=== PATIENT | male | born 1940 | race Two or more races ===

== ENCOUNTER 2024-10-26 05:03 | Inpatient (IN) | payer OTHER ==
[~2024-10-26] VITALS: Ht 175.3 cm; Wt 72.5 kg
[2024-10-26] VITALS (9 sets, daily range): BP systolic 122–126; BP diastolic 53–66; PULSE 52–85; RESP 16–26; TEMP 97.9–98.8; O2SAT 94–95
--- NOTE | 2024-10-26 05:20 | ED.PDOC ---
History of Present Illness HPI Comments 83 y/o Libyan-speaking M is [id number] son for c/c nonradiating, right abdominal pain. Per son, patient endorses on sudden, unprovoked, and atraumatic onset of sharp pain that awoke him from his sleep, this morning, 3x hours prior to arrival. Patient describes on having a knot in his abdomen. Denies having any nausea, vomiting, diarrhea, constipation, urinary symptoms, fever, chills, or further associated symptoms. No known pertinent recent history aside from a pneumonia infection with pleural effusion s/p thoracentesis. Chief Complaint: Abdominal Pain Time Seen by MD: 05:10 Reviewed Notes: Nurses Notes, Medications Allergies: Coded Allergies: NO KNOWN ALLERGIES (Unverified , 10/26/24) Information Source: Patient, Relative (Child) Mode of Arrival: Ambulatory Severity: Moderate Timing: Hours Duration: Since onset Prehospital treatment: None Past Medical History Past Medical History (Other): water in lungs secondary to PNA Surgical History (Other): thoracentesis Family History Family History: Unknown Social History Smoker: Non-Smoker Alcohol: Denies ETOH Use Drugs: Denies Drug Use Lives In: Home All Other Systems: Reviewed and Negative (Comprehensive review of systems are negative unless otherwise stated in HPI) Physical Exam General Appearance: No Apparent Distress, Normal HEENT: Normal ENT Inspection, Pharynx Normal, TMs Normal Neck: Full Range of Motion, Non-Tender, Normal, Normal Inspection Respiratory: Chest Non-Tender, Lungs Clear, No Accessory Muscle Use, No Respiratory Distress, Normal Breath Sounds Cardiovascular: No Edema, No JVD, No Murmur, No Gallop, Normal Peripheral Pulses, Regular Rate/Rhythm Breast Exam: Deferred Gastrointestinal: No Organomegaly, Non Tender, No Pulsatile Mass, Normal Bowel Sounds, Soft Genitalia: Deferred Pelvic: Deferred Rectal: Deferred Extremities: No calf tenderness, Normal capillary refill, Normal inspection, Normal range of motion, Non-tender, No pedal edema Musculoskeletal : Location: Right Extremity Location: Other (flank) Apperance: Normal, Tenderness 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 Was a procedure done?: No Differential Dx Considerations may include: gastritis, gastroenteritis, cholelithiasis, cholecystitis, diverticulitis, appendicitis, PID, nephrolithiasis, cystitis, pyelonephritis, among others X-Ray, Labs, Meds, VS Vital Signs Date Time Temp Pulse Resp B/P (MAP) Pulse Ox O2 Delivery O2 Flow Rate FiO2 10/26/24 07:16 97.9 52 17 126/53 (77) 94 97.9 10/26/24 07:16 52 17 94 Room Air* 0 21 10/26/24 07:10 51 17 118/58 10/26/24 06:13 80 17 112/69 10/26/24 06:06 99.5 80 20 112/69 (83) 91 99.5 10/26/24 06:06 80 20 91 Room Air 10/26/24 05:10 99.5 83 20 113/69 (84) 92 99.5 Lab Test 10/26/24 05:24 10/26/24 05:16 Range/Units White Blood Count 7.2 4.4-10.8 10^3/uL Red Blood Count 3.75 L 4.5-5.90 10^6/uL Hemoglobin 12.8 L 13.5-17.5 g/dL Hematocrit 35.9 L 41.0-53.0 % Mean Corpuscular Volume 95.8 80.0-100.0 fL Mean Corpuscular Hemoglobin 34.0 H 28.0-32.0 pg Mean Corpuscular Hemoglobin Concent 35.5 32.0-36.0 g/dL Red Cell Distribution Width 13.7 11.8-14.3 % Platelet Count 396 140-450 10^3/uL Mean Platelet Volume 6.9 6.9-10.8 fL Neutrophils (%) (Auto) 69.0 37.0-80.0 % Lymphocytes (%) (Auto) 16.1 10.0-50.0 % Monocytes (%) (Auto) 13.8 H 0.0-12.0 % Eosinophils (%) (Auto) 0.7 0.0-7.0 % Basophils (%) (Auto) 0.4 0.0-2.0 % Neutrophils # (Auto) 5.0 1.6-8.6 10 ^3/uL Lymphocytes # (Auto) 1.2 0.4-5.4 10 ^3/uL Monocytes # (Auto) 1.0 0-1.3 10 ^3/uL Eosinophils # (Auto) 0.1 0-0.8 10 ^3/uL Basophils # (Auto) 0 0-0.2 10 ^3/uL Nucleated Red Blood Cells 0.0 % Prothrombin Time Pending Prothrombin Time INR Pending Activated Partial Thromboplast Time Pending Sodium Level 136 136-145 mmol/L Potassium Level 4.4 3.5-5.1 mmol/L Chloride Level 100 98-107 mmol/L Carbon Dioxide Level 26 20-31 mmol/L Anion Gap 10 5-15 Blood Urea Nitrogen 15 9-23 mg/dL Creatinine 0.92 0.700-1.30 mg/dL Glomerular Filtration Rate Calc 83 >90 mL/min BUN/Creatinine Ratio 16.3 10.0-20.0 Serum Glucose 105 74-106 mg/dL Calcium Level 9.9 8.7-10.4 mg/dL Total Bilirubin 0.6 0.2-1.0 mg/dL Aspartate Amino Transferase (AST) 32 13-40 U/L Alanine Aminotransferase (ALT) 47 H 7-40 U/L Alkaline Phosphatase 113 46-116 U/L Total Protein 6.3 5.7-8.2 g/dL Albumin 3.8 3.2-4.8 g/dL Lipase 42 12-53 U/L Urine Color Light-yellow Yellow Urine Clarity Clear Clear Urine pH 6.5 5.0-9.0 Urine Specific [place] 1.013 1.001-1.035 Urine Protein Negative Negative Urine Ketones Negative Negative Urine Blood Negative Negative /uL Urine Nitrite Negative Negative Urine Bilirubin Negative Negative Urine Urobilinogen Normal Negative mg/dL Urine Leukocyte Esterase Negative Negative /uL Urine RBC <1 0 - 3 /hpf Urine Microscopic WBC < 1 0-3 /HPF Urine Squamous Epithelial Cells None seen <5 /hpf Urine Bacteria None seen None Seen /hpf Urine Glucose Normal Normal mg/dL Current Medications Medications (Trade) Dose Ordered Sig/Gama Route Start Time Stop Time Status Last Admin Ondansetron HCl (Zofran) 4 mg ONCE ONCE IV 10/26/24 05:30 10/26/24 05:31 DC 10/26/24 06:13 Sodium Chloride 1,000 ml @ 1,000 mls/hr Q1H ONCE IVB 10/26/24 05:30 10/26/24 06:29 DC 10/26/24 06:06 Morphine Sulfate 4 mg ONCE ONCE IV 10/26/24 05:30 10/26/24 05:31 DC 10/26/24 06:13 Time of 1ST Reevaluation: 05:40 Reevaluation 1ST: Unchanged Patient Education/Counseling: Diagnosis, Treatment, Need For Follow Up Family Education/Counseling: Diagnosis, Treatment, Need For Follow Up SEPSIS Sepsis Screen Physician Orders Ct Chest/Ab/Pl W Con- Iv Only (10/26/24 05:16) PTPTT (10/26/24 07:47) Chest Portable (10/26/24 07:47) Accucheck (10/26/24 07:47) Lactated Ringer's (10/26/24 08:00) Blood Culture (10/26/24 07:47) Vancomycin 1gm/200ml Pm (10/26/24 08:00) Lactic Acid W/ Reflex Order (10/26/24 08:00) Cefepime 1gm/ 50ml (Maxipime 1gm/50ml) (10/26/24 14:00) Notify Md If Map <65 Or Bp<90 (10/26/24 07:47) If Map<65 Start Vasopressor (10/26/24 07:47) Sepsis Reassesment After Fluid (10/26/24 08:47) Vital Signs Date Time Temp Pulse Resp B/P (MAP) Pulse Ox O2 Delivery O2 Flow Rate FiO2 10/26/24 07:16 97.9 52 17 126/53 (77) 94 97.9 10/26/24 07:16 52 17 94 Room Air* 0 21 10/26/24 07:10 51 17 118/58 10/26/24 06:13 80 17 112/69 10/26/24 06:06 99.5 80 20 112/69 (83) 91 99.5 10/26/24 06:06 80 20 91 Room Air 10/26/24 05:10 99.5 83 20 113/69 (84) 92 99.5 Laboratory Tests Test 10/26/24 05:24 White Blood Count 7.2 10^3/uL (4.4-10.8) Medications Medications Dose Ordered Sig/Gama Route Start Time Stop Time Status Last Admin Dose Admin Morphine Sulfate 4 mg ONCE ONCE IV 10/26/24 05:30 10/26/24 05:31 DC 10/26/24 06:13 Ondansetron HCl 4 mg ONCE ONCE IV 10/26/24 05:30 10/26/24 05:31 DC 10/26/24 06:13 Sodium Chloride 1,000 ml @ 1,000 mls/hr Q1H ONCE IVB 10/26/24 05:30 10/26/24 06:29 DC 10/26/24 06:06 Departure 1 Departure Time of Disposition: 08:08 (Patient found to have right lower and right middle lobe pneumonia. Will empirically cover patient with antibiotics and admit patient for further workup.) Impression: Primary Impression: Right lower lobe pneumonia Qualified Codes: J18.9 - Pneumonia, unspecified organism Additional Impression: Right middle lobe pneumonia Qualified Codes: J18.9 - Pneumonia, unspecified organism Disposition: ADMITTED INPATIENT Admit to: Med Surg Condition: Serious Critical Care Note Critical Care Time?: No Stability Stability form required: No Heart Score Heart Score: Heart Score Response (Comments) Value History N/A 0 EKG N/A 0 Age N/A 0 Risk Factors N/A 0 Troponin N/A 0 Total 0 I personally scribed for KIM HARVEY MD ([email or web address]) on 10/26/24 at 05:20. Electronically submitted by Laureano Madison [email or web address]). KIM HARVEY MD Oct 26, 2024 05:20 ANIKA MCNULTY MD Oct 26, 2024 08:10
[2024-10-26 05:38] LABS: Hematocrit 35.9 % (41.0-53.0); Hemoglobin 12.8 g/dL (13.5-17.5); Mean Corpuscular Hemoglobin 34.0 pg (28.0-32.0); Mean Corpuscular Volume 95.8 fL (80.0-100.0); Nucleated Red Blood Cells % 0.0 %
[2024-10-26 05:55] LABS: Alkaline Phosphatase 113 U/L (46-116); Anion Gap 10 (5-15); BUN/Creatinine Ratio 16.3 (10.0-20.0); Blood Urea Nitrogen 15 mg/dL (9-23); Calcium 9.9 mg/dL (8.7-10.4); Carbon Dioxide 26 mmol/L (20-31); Chloride 100 mmol/L (98-107); Glucose 105 mg/dL (74-106); Potassium 4.4 mmol/L (3.5-5.1); Total Protein 6.3 g/dL (5.7-8.2)
[2024-10-26 05:56] LABS: Alanine Aminotransferase 47 U/L (7-40); Albumin 3.8 g/dL (3.2-4.8); Bilirubin, Total 0.6 mg/dL (0.2-1.0); Sodium 136 mmol/L (136-145)
[2024-10-26 06:01] LABS: Urine Protein, UAD Negative (Negative)
[2024-10-26] MEDS: SODIUM CHLORIDE 0.9% 1,000 ML IVB ONE (06:06)
[2024-10-26] MEDS: MORPHINE SULFATE 4 MG/ML SYR/VIAL IV ONE (06:13)
[2024-10-26] MEDS: ONDANSETRON HCL 4 MG/2 ML VIAL IV ONE (06:13)
[2024-10-26 06:35] LABS: Lipase 42 U/L (12-53)
[2024-10-26] MEDS: IOHEXOL 300 MG/ML 100ML BOTTLE IJ ONE (06:57)
--- NOTE | 2024-10-26 07:39 | DVH ---
Exam: CT CT CHEST/AB/PL W CON- IV ONLY History: Right flank pain Comparison Study: None Technique: Multidetector CT of the chest, abdomen and pelvis was performed from lower neck to pubic s ymphysis. Intravenous contrast was administered during this examination. Coronal and sagittal multipl duglas reformats were performed by the technologist on a separate workstation. Radiation Dose Information: CT Dose: CTDI volume is 0.07 mGy. Dose-length product is 484.85 mGy*cm Findings: Lower neck: Thyroid is unremarkable. Lungs: There is confluent right middle and lower lobe airspace consolidation consistent with pneumoni a. Mild emphysema. There are nodular opacities in the left upper lobe. Central airways: Patent. Pleura: No pneumothorax or pleural effusion. Heart/Vascular Structures: Mild cardiomegaly. No pericardial effusion. Normal caliber thoracic aorta and main pulmonary artery. Lymph Nodes: Punctate right hilar calcified lymph node. No mediastinal lymphadenopathy. Liver: The liver is normal in size. No focal lesions. Normal hepatic vascular enhancement. Gallbladder and Biliary Tree: The gallbladder is unremarkable. No intrahepatic or extrahepatic bilia ry ductal dilatation. Spleen: Unremarkable Pancreas: The pancreas is normal in appearance without focal lesions or abnormal enhancement. Adrenal Glands: Unremarkable Kidneys: Kidneys demonstrate normal symmetric enhancement without focal lesions, calculi or hydroneph rosis. Right renal cysts. Bladder: Unremarkable. Bowel: Small hiatal hernia. Small bowel and colon are normal in caliber and distribution. The append ix is not visualized; however, no secondary findings of acute appendicitis identified. Peritoneum: No pneumoperitoneum. No ascites. Lymphadenopathy: No mesenteric, retroperitoneal or periportal lymphadenopathy. Abdominal Wall and Mesentery: Unremarkable. Vasculature: The visualized abdominal aorta is normal in size and caliber. Abdominal and pelvic vess els demonstrate normal enhancement. Pelvic Organs: The prostate is enlarged measuring 5.3 cm Musculoskeletal: No aggressive focal bony lesions, acute fractures or dislocation. Intervertebral dis c space narrowing at L3-L4 and L4-L5. IMPRESSION: 1. Right middle and right lower lobe pneumonia. 2. No acute process in the abdomen or pelvis. No obstructive uropathy or intrarenal calculi. 3. Enlarged prostate. All CT scans at this medical facility are performed using dose modulation techniques as appropriate t o a performed exam including the following: Automated exposure control was utilized; adjustment of th e MA and/or KV according to patient size; and use of iterative reconstruction technique.
--- NOTE | 2024-10-26 08:21 | DVH ---
CHEST RADIOGRAPH Indication: pneumonia Technique: Single frontal view of the chest was obtained COMPARISON: None FINDINGS: Lines and Tubes: None Lungs: Right lower lobe airspace disease Pleura: No effusion. No pneumothorax. Cardiomediastinal contours: Unremarkable Bones: Unremarkable IMPRESSION: Right lower lobe pneumonias
[2024-10-26 08:25] LABS: INR 1.06 (0.9-1.15); Partial Thromboplastin Time 28.9 SEC (24.5-34.5); Prothrombin Time 11.2 sec (9.3-11.8)
[2024-10-26] MEDS: LACTATED RINGER'S 2,100 ML IV ONE (08:25)
[2024-10-26] MEDS ORDERED: VANCOMYCIN PER PHARMACY 0 MG IV SCH (08:45)
[2024-10-26] MEDS ORDERED: ACETAMINOPHEN 325 MG TAB PO PRN (08:45)
[2024-10-26] MEDS ORDERED: HYDROcodone-ACET 5/325MG TAB PO PRN (08:45)
[2024-10-26] MEDS ORDERED: DOCUSATE SOD 100 MG CAP PO PRN ×2 (08:45→13:45)
[2024-10-26] MEDS ORDERED: ONDANSETRON HCL 4 MG/2 ML VIAL IV PRN ×2 (08:45→13:45)
[2024-10-26] MEDS ORDERED: LEVO75TA6 PO (08:48)
[2024-10-26] MEDS: VANCOMYCIN 1GM/200ML PM 200 ML IV ONE (08:48)
[2024-10-26] MEDS: methylPREDNISolone SOD SUCC 40 MG/ML VL IV SCH (10:18)
[2024-10-26] MEDS: IPRATROPIUM BROM 0.5 MG/2.5ML INH SOL NEB SCH (11:17)
[2024-10-26] MEDS: ALBUTEROL SULF 2.5 MG/0.5ML(0.5%) NEB SOLN NEB SCH ×2 (11:17→19:33)
[2024-10-26] MEDS: AZITHROMYCIN 500MG/ 250ML 250 ML IV SCH (13:45)
[2024-10-26] MEDS ORDERED: NITROGLYCERIN 0.4 MG SL TAB SL PRN (13:45)
[2024-10-26] MEDS ORDERED: MORPHINE SULFATE INJ 2 MG/ml SYRG IV PRN (13:45)
[2024-10-26] MEDS ORDERED: CEFEPIME 1GM/ 50ML 50 ML IV SCH (14:00)
[2024-10-26] MEDS: SODIUM CHLORIDE 0.9% 1,000 ML IV SCH (14:03)
[2024-10-26] MEDS: CEFEPIME 1GM/ 50ML 50 ML IV SCH (14:04)
--- NOTE | 2024-10-26 14:11 | DVH ---
INDICATION: Right flank and right lower quadrant pain TECHNIQUE: Graded compression technique along with Multiple real-time sonographic images were obtain ed for evaluation of the right lower quadrant. FINDINGS: The appendix was not visualized. No free fluid or lymph nodes are seen on this exam. IMPRESSION: 1.Nonvisualization of the appendix, thus cannot exclude appendicitis.
[2024-10-26] MEDS: AZITHROMYCIN 500MG/ 250ML 250 ML IV ONE (15:37)
--- NOTE | 2024-10-26 16:21 | DVHHP2 ---
History of Present Illness Reason for Visit: Right-sided abdominal pain since 5:00 a.m. this morning History of Present Illness 83-year-old male with a known significant past medical history besides hypothyroidism, was recently treated for pneumonia at some different hospital presented to the hospital with a right-sided abdominal pain. CT abdomen and pelvis shows no evidence of any acute pathology besides right middle and right lower lobe pneumonia. Patient does have appendix. CT abdomen and pelvis showed no evidence of seeing the appendix. Also appendicular ultrasound could not find the appendix. Patient does have right flank pain and right-sided abdominal pain without any nausea and vomiting fevers chills. General surgery will be consulted for ruling out acute appendicitis although clinically very less likely. Patient denies any fever cough or phlegm. Pulmonary: Pneumonia GI: Other Past Surgical History: None Family History: None Smoke: No ALCOHOL: none Lives: with Family Review of Systems Review of Systems Twelve review of system are negative besides mentioned above. Allergies: Coded Allergies: NO KNOWN ALLERGIES (Unverified , 10/26/24) Medications Current Medications Medications Dose Ordered Sig/Gama Route Start Time Stop Time Status Last Admin Dose Admin Ipratropium [place] 0.5 mg Q6HWA BANNER 10/26/24 12:00 10/26/24 11:17 0.5 MG Albuterol 2.5 mg Q6HWA BANNER 10/26/24 12:00 10/26/24 11:17 2.5 MG Methylprednisolone Sodium Succinate 40 mg BID IV 10/26/24 10:00 10/26/24 10:18 40 MG Vancomycin HCl 0 ml @ 0 mls/hr UD IV 10/26/24 08:45 Cefepime HCl 50 ml @ 12.5 mls/hr Q8HR IV 10/26/24 14:00 10/26/24 14:04 12.5 MLS/HR Patient Own Medication 1 tab QAM PO 10/27/24 07:00 Levothyroxine Sodium 25 mcg QAM PO 10/27/24 07:00 Levothyroxine Sodium 50 mcg QAM PO 10/27/24 07:00 Sodium Chloride 1,000 ml @ 120 mls/hr Q8H20M IV 10/26/24 13:45 10/26/24 14:03 120 MLS/HR Acetaminophen/ Hydrocodone Bitart 1 tab Q4HP PRN PO 10/26/24 13:45 Ondansetron HCl 4 mg Q4HP PRN IV 10/26/24 13:45 Docusate Sodium 100 mg BIDPRN PRN PO 10/26/24 13:45 Enoxaparin Sodium 40 mg DAILY SC 10/27/24 10:00 Acetaminophen 650 mg Q6HP PRN PO 10/26/24 13:45 Morphine Sulfate 2 mg Q4HPRN PRN IV 10/26/24 13:45 Nitroglycerin 0.4 mg Q5MINP PRN SL 10/26/24 13:45 Morphine Sulfate 2 mg Q30M PRN IV 10/26/24 13:45 Ceftriaxone Sodium 50 ml @ 100 mls/hr DAILY@09 IV 10/27/24 09:00 Azithromycin 250 ml @ 125 mls/hr DAILY IV 10/26/24 13:45 Hold Exam Vital Signs Vital Signs Date Time Temp Pulse Resp B/P (MAP) Pulse Ox O2 Delivery O2 Flow Rate FiO2 10/26/24 12:09 67 10/26/24 12:00 17 124/57 (79) 95 10/26/24 11:18 Nasal Cannula* 3 32 10/26/24 09:00 97.9 97.9 Exam HEENT pupils are reactive Neck is supple CV is S1-S2 regular rate and rhythm Respiratory diminished breath sounds right lung base GI positive bowel sounds soft nondistended nontender, there is no tenderness at McBurney's point Extremities no edema SHIELD RUNNER no motor deficit Labs/Xrays Labs Test 10/26/24 08:29 10/26/24 05:24 10/26/24 05:16 Range/Units Lactic Acid Level 1.3 0.4-2.0 mmol/L White Blood Count 7.2 4.4-10.8 10^3/uL Red Blood Count 3.75 L 4.5-5.90 10^6/uL Hemoglobin 12.8 L 13.5-17.5 g/dL Hematocrit 35.9 L 41.0-53.0 % Mean Corpuscular Volume 95.8 80.0-100.0 fL Mean Corpuscular Hemoglobin 34.0 H 28.0-32.0 pg Mean Corpuscular Hemoglobin Concent 35.5 32.0-36.0 g/dL Red Cell Distribution Width 13.7 11.8-14.3 % Platelet Count 396 140-450 10^3/uL Mean Platelet Volume 6.9 6.9-10.8 fL Neutrophils (%) (Auto) 69.0 37.0-80.0 % Lymphocytes (%) (Auto) 16.1 10.0-50.0 % Monocytes (%) (Auto) 13.8 H 0.0-12.0 % Eosinophils (%) (Auto) 0.7 0.0-7.0 % Basophils (%) (Auto) 0.4 0.0-2.0 % Neutrophils # (Auto) 5.0 1.6-8.6 10 ^3/uL Lymphocytes # (Auto) 1.2 0.4-5.4 10 ^3/uL Monocytes # (Auto) 1.0 0-1.3 10 ^3/uL Eosinophils # (Auto) 0.1 0-0.8 10 ^3/uL Basophils # (Auto) 0 0-0.2 10 ^3/uL Nucleated Red Blood Cells 0.0 % Prothrombin Time 11.2 9.3-11.8 sec Prothrombin Time INR 1.06 0.9-1.15 Activated Partial Thromboplast Time 28.9 24.5-34.5 SEC Sodium Level 136 136-145 mmol/L Potassium Level 4.4 3.5-5.1 mmol/L Chloride Level 100 98-107 mmol/L Carbon Dioxide Level 26 20-31 mmol/L Anion Gap 10 5-15 Blood Urea Nitrogen 15 9-23 mg/dL Creatinine 0.92 0.700-1.30 mg/dL Glomerular Filtration Rate Calc 83 >90 mL/min BUN/Creatinine Ratio 16.3 10.0-20.0 Serum Glucose 105 74-106 mg/dL Calcium Level 9.9 8.7-10.4 mg/dL Total Bilirubin 0.6 0.2-1.0 mg/dL Aspartate Amino Transferase (AST) 32 13-40 U/L Alanine Aminotransferase (ALT) 47 H 7-40 U/L Alkaline Phosphatase 113 46-116 U/L Total Protein 6.3 5.7-8.2 g/dL Albumin 3.8 3.2-4.8 g/dL Lipase 42 12-53 U/L Urine Color Light-yellow Yellow Urine Clarity Clear Clear Urine pH 6.5 5.0-9.0 Urine Specific [place] 1.013 1.001-1.035 Urine Protein Negative Negative Urine Ketones Negative Negative Urine Blood Negative Negative /uL Urine Nitrite Negative Negative Urine Bilirubin Negative Negative Urine Urobilinogen Normal Negative mg/dL Urine Leukocyte Esterase Negative Negative /uL Urine RBC <1 0 - 3 /hpf Urine Microscopic WBC < 1 0-3 /HPF Urine Squamous Epithelial Cells None seen <5 /hpf Urine Bacteria None seen None Seen /hpf Urine Glucose Normal Normal mg/dL SEPSIS Sepsis Screen Date sepsis recognized/suspect: Oct 26, 2024 Time Sepsis recognized/suspect: 717 Recent Procedure: No On Antibiotic Therapy: No Respiratory Rate >20: No Heart Rate >90: No Temp<36 C (96.8 F) or >38.3 C: No SBP <90 or MAP <65 mmHG: No New Acute Mental Status Change: No Is the patient on CPAP, BIPAP,: No Physician Orders Pt Request For Service (10/26/24 08:33) Ipratropium Medneb (Atrovent Medneb) (10/26/24 12:00) Albuterol Medneb (Ventolin Medneb) (10/26/24 12:00) Methylprednisolone Sod Succ (Solu Medrol (10/26/24 10:00) Vancomycin Per Pharmacy (10/26/24 08:45) Cefepime 1gm/ 50ml (Maxipime 1gm/50ml) (10/26/24 14:00) (Nf) Levothyroxine Sodium (10/27/24 07:00) Complete Blood Count (10/27/24 04:00) Creatinine (10/27/24 04:00) Vancomycin,Random (10/27/24 04:00) Levothyroxine Tablet (Synthroid Tablet) (10/27/24 07:00) Levothyroxine Tablet (Synthroid Tablet) (10/27/24 07:00) Admit (10/26/24 13:39) Code Status (10/26/24 13:39) 2 Gm Sodium Diet (10/26/24 Dinner) Sodium Chloride 0.9% (10/26/24 13:45) Hydrocodone-Acet 5/325mg Tab ([place] 5/32 (10/26/24 13:45) Ondansetron Hcl (Zofran) (10/26/24 13:45) Docusate Sodium Capsule (Colace Capsule) (10/26/24 13:45) Enoxaparin Sodium (Lovenox) (10/27/24 10:00) Fall Risk Precautions In Place QSHIFT (10/26/24 13:39) Pt Request For Service (10/26/24 13:39) Condition: Stable (10/26/24 13:39) Acetaminophen Tablet (Tylenol Tablet) (10/26/24 13:45) Morphine Sulfate Injection (10/26/24 13:45) Nitroglycerin Sublingual (Ntrostat Subli (10/26/24 13:45) Morphine Sulfate Injection (10/26/24 13:45) Stat Ekg For Chest Pain (10/26/24 13:39) Notify Md Of Changes From Base (10/26/24 13:39) Service Line Coordinator For 24 Hours (10/26/24 13:39) Emergency Dysrhythmia Protocol (10/26/24 13:39) Rhythm Strips Once Every Shift (10/26/24 13:39) Oxygen By Nasal Cannula (10/26/24 13:39) Right Lower Quad (10/26/24 13:37) Ceftriaxone 1gm/50ml D5w (Rocephin) (10/27/24 09:00) Azithromycin 500mg/ 250ml (Zithromax 50 (10/26/24 13:45) * Surgical Consult (10/26/24 ) Metronidazole Ivpb Flagyl (10/26/24 16:30) Vital Signs Date Time Temp Pulse Resp B/P (MAP) Pulse Ox O2 Delivery O2 Flow Rate FiO2 10/26/24 12:09 67 10/26/24 12:00 61 17 124/57 (79) 95 10/26/24 11:18 62 16 95 10/26/24 11:18 95 Nasal Cannula* 3 32 10/26/24 11:17 95 Nasal Cannula 3.0 10/26/24 10:57 93 Nasal Cannula* 2 28 10/26/24 09:00 97.9 52 17 126/53 94 21 97.9 10/26/24 08:20 56 Laboratory Tests Test 10/26/24 05:24 10/26/24 08:29 White Blood Count 7.2 10^3/uL (4.4-10.8) Lactic Acid Level 1.3 mmol/L (0.4-2.0) Medications Medications Dose Ordered Sig/Gama Route Start Time Stop Time Status Last Admin Dose Admin Albuterol 2.5 mg Q6HWA NEB 10/26/24 12:00 10/26/24 11:17 2.5 MG Azithromycin 250 ml @ 250 mls/hr ONCE ONCE IV 10/26/24 14:00 10/26/24 15:06 DC 10/26/24 15:37 250 MLS/HR Cefepime HCl 50 ml @ 12.5 mls/hr Q8HR IV 10/26/24 14:00 10/26/24 14:04 12.5 MLS/HR Ipratropium [place] 0.5 mg Q6HWA BANNER 10/26/24 12:00 10/26/24 11:17 0.5 MG Lactated Ringer's 2,100 ml @ 2,100 mls/hr ONCE ONCE IV 10/26/24 08:00 10/26/24 08:59 [place] 10/26/24 08:25 2,100 MLS/HR Methylprednisolone Sodium Succinate 40 mg BID IV 10/26/24 10:00 10/26/24 10:18 40 MG Morphine Sulfate 4 mg ONCE ONCE IV 10/26/24 05:30 10/26/24 05:31 [place] 10/26/24 06:13 4 MG Ondansetron HCl 4 mg ONCE ONCE IV 10/26/24 05:30 10/26/24 05:31 [place] 10/26/24 06:13 4 MG Sodium Chloride 1,000 ml @ 120 mls/hr Q8H20M IV 10/26/24 13:45 10/26/24 14:03 120 MLS/HR Sodium Chloride 1,000 ml @ 1,000 mls/hr Q1H ONCE IVB 10/26/24 05:30 10/26/24 06:29 [place] 10/26/24 06:06 1,000 MLS/HR Vancomycin HCl 200 ml @ 200 mls/hr ONCE ONCE IV 10/26/24 08:00 10/26/24 08:59 DC 10/26/24 08:48 200 MLS/HR Assessment/Plan Assessment/Plan 83-year-old male with a known history of hypothyroidism presented to the hospital with right-sided abdominal pain found to have 1. Right-sided abdominal pain ruled out acute appendicitis although clinically less likely 2. Right middle and right lower lobes pneumonia 3. Hypothyroidism -IV antibiotics, keep NPO, surgical consultation although clinically does not seem to be acute appendicitis. Plan discussed with: Patient, Spouse My Orders Orders - AZRA BURK MD Procedure Category Date Status Time Admit ADMIT 10/26/24 Transmitted 13:39 Code Status CODE 10/26/24 Transmitted 13:39 2 Gm Sodium Diet DIET 10/26/24 Transmitted Dinner Sodium Chloride 0.9% PHA 10/26/24 In Process 13:45 Hydrocodone-Acet PHA 10/26/24 In Process 5/325mg Tab ([place] 13:45 Ondansetron Hcl PHA 10/26/24 In Process (Zofran) 13:45 Docusate Sodium PHA 10/26/24 In Process Capsule (Colace 13:45 Enoxaparin Sodium PHA 10/27/24 In Process (Lovenox) 10:00 Fall Risk Precautions RENARD 10/26/[address] 13:39 Pt Request For Service PT 10/26/24 Logged 13:39 Condition: Stable RENARD 10/26/24 In Process 13:39 Acetaminophen Tablet PHA 10/26/24 In Process (Tylenol Tablet) 13:45 Morphine Sulfate PHA 10/26/24 In Process Injection 13:45 Nitroglycerin PHA 10/26/24 In Process Sublingual (Ntrostat 13:45 Morphine Sulfate PHA 10/26/24 In Process Injection 13:45 Stat Ekg For Chest RENARD 10/26/24 In Process Pain 13:39 Notify Md Of Changes RENARD 10/26/24 In Process From Base 13:39 Service Line Coordinator For RENARD 10/26/24 In Process 24 Hours 13:39 Emergency Dysrhythmia RENARD 10/26/24 In Process Protocol 13:39 Rhythm Strips Once RENARD 10/26/24 In Process Every Shift 13:39 Oxygen By Nasal RT 10/26/24 Transmitted Cannula 13:39 Right Lower Quad US 10/26/24 Resulted 13:37 Ceftriaxone 1gm/50ml PHA 10/27/24 In Process D5w (Rocephin) 09:00 Azithromycin 500mg/ PHA 10/26/24 In Process 250ml (Zithromax 50 13:45 * Surgical Consult CONS 10/26/24 Transmitted Metronidazole Ivpb PHA 10/26/24 Verified Flagyl 16:30 Date of Service: Oct 26, 2024 Billing Provider: AZRA BURK MD Common Visit Codes: NOT BILLABLE AZRA BURK MD Oct 26, 2024 16:21
[2024-10-26 17:20] LABS: COVID19 ANTIGEN SOFIA FIA NEGATIVE (NEGATIVE)
[2024-10-26] MEDS ORDERED: LOSA-534 PO (20:42)
[2024-10-26] MEDS: MORPHINE SULFATE INJ 2 MG/ml SYRG IV PRN (22:57)
[2024-10-27] VITALS (14 sets, daily range): BP systolic 93–118; BP diastolic 43–59; PULSE 40–72; RESP 16–22; TEMP 97.6–98.1; O2SAT 94–100
[2024-10-27] MEDS: LEVOTHYROXINE SODIUM 25 MCG TAB PO SCH (06:46)
[2024-10-27] MEDS: LEVOTHYROXINE SODIUM 50 MCG TAB PO SCH (06:46)
[2024-10-27] MEDS ORDERED: PATIENTS OWN MEDICATION (Levothyroxine Sodium 1 TAB) PO SCH (07:00)
--- NOTE | 2024-10-27 07:17 | ECG ---
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
[2024-10-27] MEDS: cefTRIAXone 1GM/50ML D5W 50 ML IV SCH (09:11)
[2024-10-27] MEDS: ENOXAPARIN SOD 40 MG/0.4 ML SYRINGE SC SCH (09:11)
[2024-10-27 09:39] LABS: Hematocrit 31.8 % (41.0-53.0); Hemoglobin 11.1 g/dL (13.5-17.5); Mean Corpuscular Hemoglobin 33.8 pg (28.0-32.0); Mean Corpuscular Volume 97.4 fL (80.0-100.0); Nucleated Red Blood Cells % 0.3 %
[2024-10-27 09:44] LABS: Anion Gap 8 (5-15); Carbon Dioxide 25 mmol/L (20-31); Chloride 104 mmol/L (98-107); Potassium 4.5 mmol/L (3.5-5.1); Sodium 137 mmol/L (136-145)
[2024-10-27 09:45] LABS: Calcium 9.0 mg/dL (8.7-10.4)
[2024-10-27 09:50] LABS: BUN/Creatinine Ratio 19.2 (10.0-20.0); Blood Urea Nitrogen 15 mg/dL (9-23); Magnesium 1.8 mg/dL (1.6-2.6)
[2024-10-27 09:52] LABS: Magnesium 1.7 mg/dL (1.6-2.6); Triglycerides 79.0 mg/dL (< 150)
[2024-10-27 09:53] LABS: Cholesterol 157.0 mg/dL (< 200)
[2024-10-27 10:00] LABS: Glucose 173 mg/dL (74-106); HDL Cholesterol 38.0 mg/dL (40-59)
[2024-10-27] MEDS: ALBUTEROL SULF 2.5 MG/0.5ML(0.5%) NEB SOLN NEB SCH (11:00)
--- NOTE | 2024-10-27 11:32 | DVHINCON2 ---
Date Seen: Oct 27, 2024 Referring Physician MAREK Dalton Reason for Consultation Bradycardia History of Present Illness This is a Urdu-speaking 83-year-old male patient who presents to emergency room with chief complaint of right abdominal and right flank pain. The patient reports that symptoms began yesterday evening. Cardiology has been consulted at this time for bradycardia. Initial twelve lead electrocardiogram reveals sinus bradycardia without any pauses or atrioventricular blocks. watch and clock repair clerk reviewed and reveals sinus bradycardia also without any pauses or atrioventricular blocks. Significant past medical history includes hypertension, pneumonia, thyroid disease, and hard of hearing. The patient denies following up with a checkroom attendant in the outpatient setting. He denies t aking any AV jessica blocking agent medications at home. Past Medical History Past medical history reviewed. No other significant than mentioned above. Past Surgical History Denies any previous surgeries Family History: Diabetes mellitus G8 MOTHER, Family History Family history reviewed. Social History Denies the use of tobacco, alcohol or illicit drugs. Allergies: Coded Allergies: NO KNOWN ALLERGIES (Unverified , 10/26/24) Home Meds Reported Medications Losartan Potassium (Losartan Potassium) 50 Mg Tab, 1 TAB PO DAILY 10/26/24 Levothyroxine Sodium (Levothyroxine Sodium) 75 Mcg Tab, 1 TAB PO QAM 10/26/24 Home Meds Home medications reviewed. Current Medications Current Medications Medications (Trade) Dose Ordered Sig/Gama Route PRN Reason Start Time Stop Time Status Last Admin Cefepime HCl 50 ml @ 12.5 mls/hr Q8HR IV 10/26/24 14:00 10/26/24 13:55 DC Ipratropium [place] (Atrovent Medneb) 0.5 mg Q6HWA [facility] 10/26/24 12:00 10/27/24 11:00 Albuterol (Ventolin Medneb) 2.5 mg Q6HWA [facility] 10/26/24 12:00 10/26/24 16:34 DC 10/26/24 11:17 Cefepime HCl 50 ml @ 12.5 mls/hr Q8HR IV 10/26/24 14:00 10/27/24 06:24 Patient Own Medication 1 tab QAM PO 10/27/24 07:00 10/26/24 16:35 DC Levothyroxine Sodium (Synthroid Tablet) 25 mcg QAM PO 10/27/24 07:00 10/27/24 06:46 Levothyroxine Sodium (Synthroid Tablet) 50 mcg QAM PO 10/27/24 07:00 10/27/24 06:46 Sodium Chloride 1,000 ml @ 120 mls/hr Q8H20M IV 10/26/24 13:45 10/26/24 23:18 Acetaminophen/ Hydrocodone Bitart ([place] 5/325MG Tab) 1 tab Q4HP PRN PO MODERATE PAIN (4-6 PAIN SCALE) 10/26/24 13:45 Ondansetron HCl (Zofran) 4 mg Q4HP PRN IV NAUSEA / VOMITING 10/26/24 13:45 Docusate Sodium (Colace Capsule) 100 mg BIDPRN PRN PO FOR CONSTIPATION 10/26/24 13:45 Enoxaparin Sodium (Lovenox) 40 mg DAILY SC 10/27/24 10:00 10/27/24 09:11 Acetaminophen (Tylenol Tablet) 650 mg Q6HP PRN PO PAIN SCALE 1-3 OR TEMP>100.4 10/26/24 13:45 Morphine Sulfate 2 mg Q4HPRN PRN IV SEVERE PAIN (7-10 PAIN SCALE) 10/26/24 13:45 10/26/24 22:57 Nitroglycerin (Ntrostat Sublingual) 0.4 mg Q5MINP PRN SL FOR CHEST PAIN 10/26/24 13:45 Morphine Sulfate 2 mg Q30M PRN IV FOR CHEST PAIN 10/26/24 13:45 Ceftriaxone Sodium 50 ml @ 100 mls/hr DAILY@09 IV 10/27/24 09:00 10/27/24 09:11 Azithromycin 250 ml @ 125 mls/hr DAILY IV 10/26/24 13:45 Hold Metronidazole 100 ml @ 100 mls/hr Q8HR IV 10/26/24 16:30 10/27/24 06:04 Albuterol (Ventolin Medneb) 2.5 mg Q4HWA [facility] 10/26/24 18:00 10/27/24 07:48 DC 10/27/24 05:40 Albuterol (Ventolin Medneb) 2.5 mg Q6HWA [facility] 10/27/24 12:00 10/27/24 11:00 Review of Systems Constitutional: No symptom reported Ears, Nose, & Throat: No symptom reported Eyes: No symptom reported Neurological: No symptoms reported Pulmonary/Respiratory: No symptoms reported Cardiovascular: No symptom reported Gastrointestinal: Abdominal pain Genitourinary: No symptom reported Musculoskeletal: No symptom reported Skin: No symptom reported Psychiatric: No symptom reported Endocrine: No symptom reported Hematologic/Lymphatic: No symptom reported Vital Signs Vital Signs Date Time Temp Pulse Resp B/P (MAP) Pulse Ox O2 Delivery O2 Flow Rate FiO2 10/27/24 11:05 72 16 99 10/27/24 11:00 Nasal Cannula* 2 28 10/27/24 05:28 118/52 (74) 10/27/24 05:00 98.1 98.1 Physical Exam General Appearance: Cooperative. Well-developed. Well-nourished. No acute distress. Pulmonary/Respiratory: Clear, bilateral breaths sounds. Cardiovascular/Chest: Regular rate and rhythm. Peripheral Pulses: 2+ Radial (R). 2+ Radial (L). 2+ Pedal (R). 2+ Pedal (L) Abdominal Exam: Normal bowel sounds. Ankle Exam: Negative ankle edema Lower extremities: Negative lower extremity edema Neuro/Mental Status: A/OX4, coherent. Thoughts/Psych: Normal thought pattern. Appropriate mood and affect. Good judgment and insight. Appearance: No acute distress. Skin Exam: Normal inspection. Normal color. Warm and dry. Labs/Diagnostic Data Labs Test 10/27/24 08:51 10/26/24 16:41 10/26/24 08:29 10/26/24 05:24 Range/Units White Blood Count 3.7 #L 4.4-10.8 10^3/uL Red Blood Count 3.27 L 4.5-5.90 10^6/uL Hemoglobin 11.1 L 13.5-17.5 g/dL Hematocrit 31.8 #L 41.0-53.0 % Mean Corpuscular Volume 97.4 80.0-100.0 fL Mean Corpuscular Hemoglobin 33.8 H 28.0-32.0 pg Mean Corpuscular Hemoglobin Concent 34.7 32.0-36.0 g/dL Red Cell Distribution Width 13.5 11.8-14.3 % Platelet Count 325 140-450 10^3/uL Mean Platelet Volume 7.1 6.9-10.8 fL Neutrophils (%) (Auto) 92.4 H 37.0-80.0 % Lymphocytes (%) (Auto) 5.8 L 10.0-50.0 % Monocytes (%) (Auto) 1.7 0.0-12.0 % Eosinophils (%) (Auto) 0.0 0.0-7.0 % Basophils (%) (Auto) 0.1 0.0-2.0 % Neutrophils # (Auto) 3.4 1.6-8.6 10 ^3/uL Lymphocytes # (Auto) 0.2 L 0.4-5.4 10 ^3/uL Monocytes # (Auto) 0.1 0-1.3 10 ^3/uL Eosinophils # (Auto) 0 0-0.8 10 ^3/uL Basophils # (Auto) 0 0-0.2 10 ^3/uL Nucleated Red Blood Cells 0.3 % Sodium Level 137 136-145 mmol/L Potassium Level 4.5 3.5-5.1 mmol/L Chloride Level 104 98-107 mmol/L Carbon Dioxide Level 25 20-31 mmol/L Anion Gap 8 5-15 Blood Urea Nitrogen 15 9-23 mg/dL Creatinine 0.78 0.700-1.30 mg/dL Glomerular Filtration Rate Calc 88 >90 mL/min BUN/Creatinine Ratio 19.2 10.0-20.0 Serum Glucose 173 H 74-106 mg/dL Hemoglobin A1c 6.4 H <5.7 % A1C Calcium Level 9.0 8.7-10.4 mg/dL Magnesium Level 1.7 1.6-2.6 mg/dL Triglycerides Level 79 < 150 mg/dL Cholesterol Level 157 < 200 mg/dL LDL Cholesterol 112 H < 100 mg/dL HDL Cholesterol 38 L 40-59 mg/dL Thyroid Stimulating Hormone (TSH) 1.29 0.55-4.78 uIU/mL Influenza Type A Antigen Negative Negative Influenza Type B Antigen Negative Negative SARS-CoV-2 Antigen (Rapid) Negative NEGATIVE Lactic Acid Level 1.3 0.4-2.0 mmol/L Prothrombin Time 11.2 9.3-11.8 sec Prothrombin Time INR 1.06 0.9-1.15 Activated Partial Thromboplast Time 28.9 24.5-34.5 SEC Total Bilirubin 0.6 0.2-1.0 mg/dL Aspartate Amino Transferase (AST) 32 13-40 U/L Alanine Aminotransferase (ALT) 47 H 7-40 U/L Alkaline Phosphatase 113 46-116 U/L Total Protein 6.3 5.7-8.2 g/dL Albumin 3.8 3.2-4.8 g/dL Lipase 42 12-53 U/L Test 10/26/24 05:16 Range/Units Urine Color Light-yellow Yellow Urine Clarity Clear Clear Urine pH 6.5 5.0-9.0 Urine Specific [place] 1.013 1.001-1.035 Urine Protein Negative Negative Urine Ketones Negative Negative Urine Blood Negative Negative /uL Urine Nitrite Negative Negative Urine Bilirubin Negative Negative Urine Urobilinogen Normal Negative mg/dL Urine Leukocyte Esterase Negative Negative /uL Urine RBC <1 0 - 3 /hpf Urine Microscopic WBC < 1 0-3 /HPF Urine Squamous Epithelial Cells None seen <5 /hpf Urine Bacteria None seen None Seen /hpf Urine Glucose Normal Normal mg/dL Microbiology Date/Time Source Procedure Growth Status 10/26/24 08:31 Blood Blood Culture - Preliminary NO GROWTH AFTER 24 HOURS OF INCUBATION. Resulted Assessment Sinus bradycardia Ruled out structural heart disease Hypertension Pneumonia Thyroid disease Plan/Recommendation We will continue with the following plan/recommendations (Dr. Denney): Case discussed with . Transthoracic echocardiogram reveals an EF of 55%. The patient noted to have sinus bradycardia on campus police officer, patient remains asymptomatic. No pauses or atrioventricular blocks were seen on campus police officer. At this time, no indication for permanent pacemaker implantation. Continue with close cardiac surveillance. Avoid AV jessica blocking agents. Assess for reversible signs of bradycardia. Thank you for allowing us to care for this patient. Please call with any questions or concerns. Critical care time spent: 44 minutes This medical document was created using an electronic medical record system with voice recognition software and computerized dictation system. Although this document has been carefully reviewed, there might still be some phonetic and typographical errors. Occasional wrong-word or ``sound-alike substitutions may have occurred due to the inherent limitations of voice recognition software. These areas are purely typographical due to imperfections of the software programs and do not reflect any compromise in the patient's medical care. Please read the chart carefully and recognize, using context, where these substitutions have occurred. Plan discussed with: Patient NYHA Physical activity limitations: NA Date of Service: Oct 27, 2024 Billing Provider: FRANCISCO REYES Cardiology Common Codes: [id number] INP/OBS CARE (High) Cardiology Consultation Codes: [id number] CONSULT <45MIN FRANCISCO REYES [facility] Oct 27, 2024 11:32
--- NOTE | 2024-10-27 12:50 | DVHSR ---
APPROVED REPORT EXAM: Two-dimensional and M-mode echocardiogram with Doppler and color Doppler. Blood Pressure: 118/52 mmHg INDICATION Low HR RISK FACTORS Height: 5'9", Weight: 152 DIMENSIONS LVDd4.7 (3.8-5.7cm)LA (2D)4.0 (1.9-4.0cm)Aortic Root3.5 (2.0-3.7cm) LVDs3.0 (2.5-4.0cm)LA (MM) (1.9-4.0cm)Aortic Cusp Exc1.8 (1.5-2.0cm) EF (%) 66.0 (55-70%)Rt. Atrium4.6 (1.9-4.0cm)Asc. Aorta3.5 cm IVSd0.6 (0.7-1.1cm)RV (D)3.7 (1.8-2.4cm) PWd0.7 (0.7-1.1cm) Mitral Valve MitralMitral Stenosis E wave0.50m/sMV Mean GR.mmHg A wave0.64m/sMV Peak GR.mmHg E/A ratio0.82D MVAcm2 DECEL [id number] 1/2 [place] Aortic Valve Aortic ValveAortic Stenosis V10.95m/Terry Mean GR.3mmHg V21.28m/Terry Peak GR.7mmHg LVOT Diameter2.2 (1.8-2.4cm)Doppler AVA2.82cm2 Pulmonic Valve V20.84m/s Tricuspid Valve TR Velocity2.52m/s [id number] Other Information Quality : Technically LimitedRhythm : Technically limited study due to body habitus. Conclusion lvef 55% normal rv function left atrium enlarged no severe valve abnormality noted
--- NOTE | 2024-10-27 12:51 | MEDREC ---
[facility] ASP Intervention Section I [facility] ASP Intervention: Duplication of therapy (PLEASE CONSIDER D/C CEFEPIME OR CEFTRIAXONE (DUPLICATE) ) DARREN FIELDS PHARMACIST Oct 27, 2024 12:51
--- NOTE | 2024-10-27 18:40 | DVHPN2 ---
Subjective OVERNIGHT EVENTS NOTED. PATIENT'S WAS HAPPEN TO HAVE BRADYCARDIA BUT CURRENTLY ASYMPTOMATIC CARDIOLOGY IS ON BOARD. 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 Medications Current Medications Medications Dose Ordered Sig/Gama Route Start Time Stop Time Status Last Admin Dose Admin Ipratropium [place] 0.5 mg Q6HWA NEB 10/26/24 12:00 10/27/24 11:00 0.5 MG Methylprednisolone Sodium Succinate 40 mg BID IV 10/26/24 10:00 10/27/24 09:11 40 MG Cefepime HCl 50 ml @ 12.5 mls/hr Q8HR IV 10/26/24 14:00 10/27/24 06:24 12.5 MLS/HR Levothyroxine Sodium 25 mcg QAM PO 10/27/24 07:00 10/27/24 06:46 25 MCG Levothyroxine Sodium 50 mcg QAM PO 10/27/24 07:00 10/27/24 06:46 50 MCG Sodium Chloride 1,000 ml @ 120 mls/hr Q8H20M IV 10/26/24 13:45 10/27/24 14:18 120 MLS/HR Acetaminophen/ Hydrocodone Bitart 1 tab Q4HP PRN PO 10/26/24 13:45 Ondansetron HCl 4 mg Q4HP PRN IV 10/26/24 13:45 Docusate Sodium 100 mg BIDPRN PRN PO 10/26/24 13:45 Enoxaparin Sodium 40 mg DAILY SC 10/27/24 10:00 10/27/24 09:11 40 MG Acetaminophen 650 mg Q6HP PRN PO 10/26/24 13:45 Morphine Sulfate 2 mg Q4HPRN PRN IV 10/26/24 13:45 10/26/24 22:57 2 MG Nitroglycerin 0.4 mg Q5MINP PRN SL 10/26/24 13:45 Morphine Sulfate 2 mg Q30M PRN IV 10/26/24 13:45 Azithromycin 250 ml @ 125 mls/hr DAILY IV 10/26/24 13:45 Hold Albuterol 2.5 mg Q6HWA NEB 10/27/24 12:00 10/27/24 11:00 2.5 MG Laboratory Results Laboratory Tests 10/27/24 08:51 Chemistry Test 10/27/24 08:51 Calcium Level 9.0 mg/dL (8.7-10.4) Magnesium Level 1.7 mg/dL (1.6-2.6) Lipid panel Test 10/27/24 08:51 Cholesterol Level 157 mg/dL (< 200) HDL Cholesterol 38 mg/dL (40-59) L Triglycerides Level 79 mg/dL (< 150) HgA1c, TSH Test 10/27/24 08:51 Hemoglobin A1c 6.4 % A1C (<5.7) H Thyroid Stimulating Hormone (TSH) 1.29 uIU/mL (0.55-4.78) Urinalysis Test 10/26/24 05:16 Urine Color Light-yellow (Yellow) Urine Clarity Clear (Clear) Urine pH 6.5 (5.0-9.0) Urine Specific [place] 1.013 (1.001-1.035) Urine Protein Negative (Negative) Urine Ketones Negative (Negative) Urine Blood Negative /uL (Negative) Urine Nitrite Negative (Negative) Urine Bilirubin Negative (Negative) Urine Urobilinogen Normal mg/dL (Negative) Urine Leukocyte Esterase Negative /uL (Negative) Urine RBC <1 /hpf (0 - 3) Urine Microscopic WBC < 1 /HPF (0-3) Urine Squamous Epithelial Cells None seen /hpf (<5) Urine Bacteria None seen /hpf (None Seen) Urine Glucose Normal mg/dL (Normal) Microbiology Microbiology Date/Time Source Procedure Growth Status 10/26/24 08:31 Blood Blood Culture - Preliminary NO GROWTH AFTER 24 HOURS OF INCUBATION. Resulted Assessment/Plan Assessment/Plan 83-year-old male with a known history of hypothyroidism presented to the hospital with right-sided abdominal pain found to have 1. Right-sided abdominal pain ruled out acute appendicitis although clinically less likely 2. Right middle and right lower lobes pneumonia 3. Hypothyroidism 4. ASYMPTOMATIC BRADYCARDIA -IV antibiotics, keep NPO, surgical consultation although clinically does not seem to be acute appendicitis. Plan discussed with: Patient, Spouse My Orders Orders - AZRA BURK MD Procedure Category Date Status Time Albuterol Medneb PHA 10/27/24 In Process (Ventolin Medneb) 12:00 Date of Service: Oct 27, 2024 Billing Provider: AZRA BURK MD Common Visit Codes: NOT BILLABLE AZRA BURK MD Oct 27, 2024 18:40
[2024-10-27] MEDS: SODIUM CHLORIDE 0.9% 250 ML IV ONE (20:08)
[2024-10-28] VITALS (15 sets, daily range): BP systolic 97–155; BP diastolic 53–84; PULSE 43–86; RESP 14–19; TEMP 97.7–98.3; O2SAT 91–100
--- NOTE | 2024-10-28 17:05 | DVHPN2 ---
Subjective OVERNIGHT EVENTS NOTED. PATIENT'S WAS HAPPEN TO HAVE BRADYCARDIA BUT CURRENTLY ASYMPTOMATIC CARDIOLOGY IS ON BOARD. Changes from previous H/P or p: No Changes Objective Vitals Vital Signs Date Time Temp Pulse Resp B/P (MAP) Pulse Ox O2 Delivery O2 Flow Rate FiO2 10/28/24 11:11 63 16 99 10/28/24 08:00 Nasal Cannula* 3 32 10/28/24 04:30 97.9 138/74 (95) 97.9 Intake/Output Intake and Output 10/28/24 07:00 Intake Total 1750 ml Output Total 1478 ml Balance 272 ml Intake Oral 550 ml IV Total 1200 ml Output Urine Total 503 ml Stool Total 975 ml # Voids 2 Exam HEENT PUPILS ARE REACTIVE NECK IS SUPPLE CV IS S1-S2 REGULAR RATE AND RHYTHM RESPIRATORY DIMINISHED BREATH SOUNDS RIGHT LUNG BASE GI POSITIVE BOWEL SOUND EXTREMITY 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 Medications Current Medications Medications Dose Ordered Sig/Gama Route Start Time Stop Time Status Last Admin Dose Admin Ipratropium [place] 0.5 mg Q6HWA NEB 10/26/24 12:00 10/28/24 11:01 0.5 MG Methylprednisolone Sodium Succinate 40 mg BID IV 10/26/24 10:00 10/28/24 11:03 40 MG Cefepime HCl 50 ml @ 12.5 mls/hr Q8HR IV 10/26/24 14:00 10/28/24 14:24 12.5 MLS/HR Levothyroxine Sodium 25 mcg QAM PO 10/27/24 07:00 10/28/24 06:05 25 MCG Levothyroxine Sodium 50 mcg QAM PO 10/27/24 07:00 10/28/24 06:05 50 MCG Sodium Chloride 1,000 ml @ 120 mls/hr Q8H20M IV 10/26/24 13:45 10/28/24 16:29 120 MLS/HR Acetaminophen/ Hydrocodone Bitart 1 tab Q4HP PRN PO 10/26/24 13:45 Ondansetron HCl 4 mg Q4HP PRN IV 10/26/24 13:45 Docusate Sodium 100 mg BIDPRN PRN PO 10/26/24 13:45 Enoxaparin Sodium 40 mg DAILY SC 10/27/24 10:00 10/28/24 11:03 40 MG Acetaminophen 650 mg Q6HP PRN PO 10/26/24 13:45 Morphine Sulfate 2 mg Q4HPRN PRN IV 10/26/24 13:45 10/26/24 22:57 2 MG Nitroglycerin 0.4 mg Q5MINP PRN SL 10/26/24 13:45 Morphine Sulfate 2 mg Q30M PRN IV 10/26/24 13:45 Azithromycin 250 ml @ 125 mls/hr DAILY IV 10/26/24 13:45 Hold Albuterol 2.5 mg Q6HWA NEB 10/27/24 12:00 10/28/24 11:01 2.5 MG Laboratory Results Laboratory Tests 10/27/24 08:51 Urinalysis Test 10/26/24 05:16 Urine Color Light-yellow (Yellow) Urine Clarity Clear (Clear) Urine pH 6.5 (5.0-9.0) Urine Specific [place] 1.013 (1.001-1.035) Urine Protein Negative (Negative) Urine Ketones Negative (Negative) Urine Blood Negative /uL (Negative) Urine Nitrite Negative (Negative) Urine Bilirubin Negative (Negative) Urine Urobilinogen Normal mg/dL (Negative) Urine Leukocyte Esterase Negative /uL (Negative) Urine RBC <1 /hpf (0 - 3) Urine Microscopic WBC < 1 /HPF (0-3) Urine Squamous Epithelial Cells None seen /hpf (<5) Urine Bacteria None seen /hpf (None Seen) Urine Glucose Normal mg/dL (Normal) Microbiology Microbiology Date/Time Source Procedure Growth Status 10/26/24 08:31 Blood Blood Culture - Preliminary NO GROWTH AFTER 48 HOURS OF INCUBATION. Resulted Assessment/Plan Assessment/Plan 83-year-old male with a known history of hypothyroidism presented to the hospital with right-sided abdominal pain found to have 1. Right-sided abdominal pain ruled out acute appendicitis although clinically less likely 2. Right middle and right lower lobes pneumonia 3. Hypothyroidism 4. ASYMPTOMATIC BRADYCARDIA -IV antibiotics, diet as tolerated , we will assess home oxygen requirement upon discharge. Plan discussed with: Patient, Spouse Date of Service: Oct 28, 2024 Billing Provider: AZRA BURK MD Common Visit Codes: [id number] INP/OBS CARE(MOD) AZRA BURK MD Oct 28, 2024 17:05
[2024-10-29] VITALS (14 sets, daily range): BP systolic 104–161; BP diastolic 57–77; PULSE 44–71; RESP 16–20; TEMP 97.6–98.5; O2SAT 92–100
--- NOTE | 2024-10-29 17:51 | DVHPN2 ---
Subjective OVERNIGHT EVENTS NOTED. PATIENT'S WAS HAPPEN TO HAVE BRADYCARDIA BUT CURRENTLY ASYMPTOMATIC CARDIOLOGY IS ON BOARD. Changes from previous H/P or p: No Changes Objective Vitals Vital Signs Date Time Temp Pulse Resp B/P (MAP) Pulse Ox O2 Delivery O2 Flow Rate FiO2 10/29/24 12:30 98.0 51 16 104/57 (73) 92 98.0 10/29/24 11:25 3.0 32 10/29/24 08:00 Nasal Cannula* Intake/Output Intake and Output 10/29/24 07:00 Intake Total 1200 ml Output Total 1900 ml Balance -700 ml Intake Oral 150 ml IV Total 1050 ml Output Urine Total 1900 ml # Voids 2 # Bowel Movements 1 Exam HEENT PUPILS ARE REACTIVE NECK IS SUPPLE CV IS S1-S2 REGULAR RATE AND RHYTHM RESPIRATORY DIMINISHED BREATH SOUNDS RIGHT LUNG BASE GI POSITIVE BOWEL SOUND EXTREMITY 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 MOTOR 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 Medications Current Medications Medications Dose Ordered Sig/Gama Route Start Time Stop Time Status Last Admin Dose Admin Ipratropium [place] 0.5 mg Q6HWA NEB 10/26/24 12:00 10/29/24 06:45 0.5 MG Methylprednisolone Sodium Succinate 40 mg BID IV 10/26/24 10:00 10/29/24 10:31 40 MG Cefepime HCl 50 ml @ 12.5 mls/hr Q8HR IV 10/26/24 14:00 10/29/24 14:00 12.5 MLS/HR Levothyroxine Sodium 25 mcg QAM PO 10/27/24 07:00 10/29/24 06:00 25 MCG Levothyroxine Sodium 50 mcg QAM PO 10/27/24 07:00 10/29/24 06:00 50 MCG Sodium Chloride 1,000 ml @ 120 mls/hr Q8H20M IV 10/26/24 13:45 10/29/24 08:25 120 MLS/HR Acetaminophen/ Hydrocodone Bitart 1 tab Q4HP PRN PO 10/26/24 13:45 Ondansetron HCl 4 mg Q4HP PRN IV 10/26/24 13:45 Docusate Sodium 100 mg BIDPRN PRN PO 10/26/24 13:45 Enoxaparin Sodium 40 mg DAILY SC 10/27/24 10:00 10/29/24 10:31 40 MG Acetaminophen 650 mg Q6HP PRN PO 10/26/24 13:45 Morphine Sulfate 2 mg Q4HPRN PRN IV 10/26/24 13:45 10/26/24 22:57 2 MG Nitroglycerin 0.4 mg Q5MINP PRN SL 10/26/24 13:45 Morphine Sulfate 2 mg Q30M PRN IV 10/26/24 13:45 Azithromycin 250 ml @ 125 mls/hr DAILY IV 10/26/24 13:45 Hold Albuterol 2.5 mg Q6HWA NEB 10/27/24 12:00 10/29/24 06:45 2.5 MG Laboratory Results Laboratory Tests 10/27/24 08:51 Urinalysis Test 10/26/24 05:16 Urine Color Light-yellow (Yellow) Urine Clarity Clear (Clear) Urine pH 6.5 (5.0-9.0) Urine Specific [place] 1.013 (1.001-1.035) Urine Protein Negative (Negative) Urine Ketones Negative (Negative) Urine Blood Negative /uL (Negative) Urine Nitrite Negative (Negative) Urine Bilirubin Negative (Negative) Urine Urobilinogen Normal mg/dL (Negative) Urine Leukocyte Esterase Negative /uL (Negative) Urine RBC <1 /hpf (0 - 3) Urine Microscopic WBC < 1 /HPF (0-3) Urine Squamous Epithelial Cells None seen /hpf (<5) Urine Bacteria None seen /hpf (None Seen) Urine Glucose Normal mg/dL (Normal) Microbiology Microbiology Date/Time Source Procedure Growth Status 10/26/24 08:31 Blood Blood Culture - Preliminary NO GROWTH AFTER 72 HOURS OF INCUBATION. Resulted Assessment/Plan Assessment/Plan 83-year-old male with a known history of hypothyroidism presented to the hospital with right-sided abdominal pain found to have 1. Right-sided abdominal pain ruled out acute appendicitis although clinically less likely 2. Right middle and right lower lobes pneumonia 3. Hypothyroidism 4. ASYMPTOMATIC BRADYCARDIA -IV antibiotics, diet as tolerated , we will assess home oxygen requirement upon discharge. Plan discussed with: Patient, Spouse, Son Date of Service: Oct 29, 2024 Billing Provider: AZRA BURK MD Common Visit Codes: NOT BILLABLE AZRA BURK MD Oct 29, 2024 17:51
[2024-10-30] VITALS (14 sets, daily range): BP systolic 114–155; BP diastolic 65–77; PULSE 40–63; RESP 14–22; TEMP 97.4–98.8; O2SAT 95–100
--- NOTE | 2024-10-30 14:47 | DVHINCON2 ---
Date of service: Oct 30, 2024 Family History: Diabetes mellitus G8 MOTHER, Allergies: Coded Allergies: NO KNOWN ALLERGIES (Unverified , 10/26/24) Home Meds Reported Medications Losartan Potassium (Losartan Potassium) 50 Mg Tab, 1 TAB PO DAILY 10/26/24 Levothyroxine Sodium (Levothyroxine Sodium) 75 Mcg Tab, 1 TAB PO QAM 10/26/24 Vital Signs Vital Signs Date Time Temp Pulse Resp B/P (MAP) Pulse Ox O2 Delivery O2 Flow Rate FiO2 10/30/24 11:53 42 16 100 10/30/24 11:45 Nasal Cannula 2.0 10/30/24 11:45 28 10/30/24 09:00 98.3 128/65 (86) 98.3 Labs/Diagnostic Data Labs Test 10/27/24 08:51 10/26/24 16:41 10/26/24 08:29 10/26/24 05:24 Range/Units White Blood Count 3.7 #L 4.4-10.8 10^3/uL Red Blood Count 3.27 L 4.5-5.90 10^6/uL Hemoglobin 11.1 L 13.5-17.5 g/dL Hematocrit 31.8 #L 41.0-53.0 % Mean Corpuscular Volume 97.4 80.0-100.0 fL Mean Corpuscular Hemoglobin 33.8 H 28.0-32.0 pg Mean Corpuscular Hemoglobin Concent 34.7 32.0-36.0 g/dL Red Cell Distribution Width 13.5 11.8-14.3 % Platelet Count 325 140-450 10^3/uL Mean Platelet Volume 7.1 6.9-10.8 fL Neutrophils (%) (Auto) 92.4 H 37.0-80.0 % Lymphocytes (%) (Auto) 5.8 L 10.0-50.0 % Monocytes (%) (Auto) 1.7 0.0-12.0 % Eosinophils (%) (Auto) 0.0 0.0-7.0 % Basophils (%) (Auto) 0.1 0.0-2.0 % Neutrophils # (Auto) 3.4 1.6-8.6 10 ^3/uL Lymphocytes # (Auto) 0.2 L 0.4-5.4 10 ^3/uL Monocytes # (Auto) 0.1 0-1.3 10 ^3/uL Eosinophils # (Auto) 0 0-0.8 10 ^3/uL Basophils # (Auto) 0 0-0.2 10 ^3/uL Nucleated Red Blood Cells 0.3 % Sodium Level 137 136-145 mmol/L Potassium Level 4.5 3.5-5.1 mmol/L Chloride Level 104 98-107 mmol/L Carbon Dioxide Level 25 20-31 mmol/L Anion Gap 8 5-15 Blood Urea Nitrogen 15 9-23 mg/dL Creatinine 0.78 0.700-1.30 mg/dL Glomerular Filtration Rate Calc 88 >90 mL/min BUN/Creatinine Ratio 19.2 10.0-20.0 Serum Glucose 173 H 74-106 mg/dL Hemoglobin A1c 6.4 H <5.7 % A1C Calcium Level 9.0 8.7-10.4 mg/dL Magnesium Level 1.7 1.6-2.6 mg/dL Triglycerides Level 79 < 150 mg/dL Cholesterol Level 157 < 200 mg/dL LDL Cholesterol 112 H < 100 mg/dL HDL Cholesterol 38 L 40-59 mg/dL Thyroid Stimulating Hormone (TSH) 1.29 0.55-4.78 uIU/mL Influenza Type A Antigen Negative Negative Influenza Type B Antigen Negative Negative SARS-CoV-2 Antigen (Rapid) Negative NEGATIVE Lactic Acid Level 1.3 0.4-2.0 mmol/L Prothrombin Time 11.2 9.3-11.8 sec Prothrombin Time INR 1.06 0.9-1.15 Activated Partial Thromboplast Time 28.9 24.5-34.5 SEC Total Bilirubin 0.6 0.2-1.0 mg/dL Aspartate Amino Transferase (AST) 32 13-40 U/L Alanine Aminotransferase (ALT) 47 H 7-40 U/L Alkaline Phosphatase 113 46-116 U/L Total Protein 6.3 5.7-8.2 g/dL Albumin 3.8 3.2-4.8 g/dL Lipase 42 12-53 U/L Test 10/26/24 05:16 Range/Units Urine Color Light-yellow Yellow Urine Clarity Clear Clear Urine pH 6.5 5.0-9.0 Urine Specific [place] 1.013 1.001-1.035 Urine Protein Negative Negative Urine Ketones Negative Negative Urine Blood Negative Negative /uL Urine Nitrite Negative Negative Urine Bilirubin Negative Negative Urine Urobilinogen Normal Negative mg/dL Urine Leukocyte Esterase Negative Negative /uL Urine RBC <1 0 - 3 /hpf Urine Microscopic WBC < 1 0-3 /HPF Urine Squamous Epithelial Cells None seen <5 /hpf Urine Bacteria None seen None Seen /hpf Urine Glucose Normal Normal mg/dL Microbiology Date/Time Source Procedure Growth Status 10/26/24 08:31 Blood Blood Culture - Preliminary NO GROWTH AFTER 72 HOURS OF INCUBATION. Resulted Assessment [id number] AFEBRILE VSS ABD SOFT NON TENDER NO CLINICAL/RADIOLOGIC CONFIRMATION OF AC APPENDICITIS NO INDICATION FOR URGENT SURGERY Plan discussed with: Other SHILPA DICK MD Oct 30, 2024 14:47
[2024-10-30 16:40] LABS: Hematocrit 35.3 % (41.0-53.0); Hemoglobin 12.4 g/dL (13.5-17.5); Mean Corpuscular Hemoglobin 33.9 pg (28.0-32.0); Mean Corpuscular Volume 96.7 fL (80.0-100.0); Nucleated Red Blood Cells % 0.1 %
[2024-10-30 16:53] LABS: Albumin 3.3 g/dL (3.2-4.8); Alkaline Phosphatase 95 U/L (46-116); Anion Gap 9 (5-15); BUN/Creatinine Ratio 25.6 (10.0-20.0); Bilirubin, Total 0.3 mg/dL (0.2-1.0); Blood Urea Nitrogen 20 mg/dL (9-23); Calcium 8.7 mg/dL (8.7-10.4); Carbon Dioxide 27 mmol/L (20-31); Chloride 101 mmol/L (98-107); Potassium 3.9 mmol/L (3.5-5.1); Sodium 137 mmol/L (136-145)
[2024-10-30 16:54] LABS: Alanine Aminotransferase 70 U/L (7-40); Glucose 247 mg/dL (74-106); Total Protein 5.5 g/dL (5.7-8.2)
--- NOTE | 2024-10-30 20:45 | DVHINCON2 ---
DATE OF CONSULTATION: 10/30/2024 HISTORY OF PRESENT ILLNESS: This patient is 83 years old, coming in with a history of hypothyroidism. He is being treated for pneumonia and now comes in with abdominal pain, now resolved. No abdominal pain. No nausea or vomiting. No constipation or diarrhea. No hematemesis or melena. No bleeding per rectum. PAST MEDICAL HISTORY: Pneumonia. PAST SURGICAL HISTORY: Negative. PHYSICAL EXAMINATION: VITAL SIGNS: Afebrile, stable signs. HEENT: No evidence of pallor, cyanosis or jaundice. NECK: Supple, nontender, with no thyromegaly or lymphadenopathy. CHEST AND LUNGS: Clear. HEART: Within normal limits. ABDOMEN: Soft, nontender. No rebound. EXTREMITIES: Unremarkable. NEUROLOGIC: Intact. CLINICAL IMPRESSION: There is no clinical or radiological evidence of acute appendicitis. PLAN: Manage him conservatively for other medical issues, but at this point, no acute surgical intervention is indicated. Kayden Sher MD RG/EKT/ANI TID: [id number] RECEIPT: [id number] cc: Wallace Tracy MD
--- NOTE | 2024-10-30 22:05 | DVHINCON2 ---
Date of service: Oct 30, 2024 Referring Physician Wallace Tracy MD Reason for Consultation Acute hypoxic respiratory failure secondary to pneumonia History of Present Illness An 83-year-old man with past medical history of hypertension, hypothyroidism and recent pneumonia (treated at outside hospital) who presented to ED on 10/26/24 with c/o right-sided abdominal pain. CT abdomen and pelvis revealed right middle and right lower lobe pneumonia, otherwise no acute pathology. Patient does have his appendix. CT abdomen and pelvis or appendicular ultrasound could not find the appendix. Patient c/o right flank pain and right-sided abdominal pain without any nausea, vomiting, fevers or chills. Patient was admitted for further care to rule out acute appendicitis. Pulmonary consultation is requested for evaluation and management of acute hypoxic respiratory failure secondary to pneumonia. Review of Systems: 14-point review of systems negative unless otherwise noted above. Past Medical History: Hypertension, hypothyroidism and recent pneumonia (treated at outside hospital). Hard of hearing. Past Surgical History: None Medications: Reviewed. Allergies: No known drug allergies. Family History: Family history positive for diabetes mellitus. Social History: Nonsmoker. No alcohol or illicit drug use. Family History: Diabetes mellitus G8 MOTHER, Allergies: Coded Allergies: NO KNOWN ALLERGIES (Unverified , 10/26/24) Home Meds Reported Medications Losartan Potassium (Losartan Potassium) 50 Mg Tab, 1 TAB PO DAILY 10/26/24 Levothyroxine Sodium (Levothyroxine Sodium) 75 Mcg Tab, 1 TAB PO QAM 10/26/24 Vital Signs Vital Signs Date Time Temp Pulse Resp B/P (MAP) Pulse Ox O2 Delivery O2 Flow Rate FiO2 10/30/24 18:34 55 20 100 10/30/24 18:26 Nasal Cannula* 2 28 10/30/24 17:00 97.7 134/76 (95) 97.7 Physical Exam Gen.: Patient lying in bed in no apparent distress. On supplemental oxygen. Head: Normocephalic, atraumatic. Eyes: EOMI/PERRLA. Ears: Normal hearing. Normal anatomy. Neck/trachea: Trachea midline, supple. Nose: Normal external anatomy. Mouth: Moist mucous membranes. Chest: Decreased air entry bilaterally. No wheezing or rhonchi. Cardiovascular: Positive S1, positive S2. Regular rate and rhythm. Abdomen: Positive bowel sounds in all 4 quadrants. Soft, non-tender, non- distended. : Deferred. Rectal: Deferred. Skin: Warm, dry. Intact. Extremities: 2+ radial pulses bilaterally. No lower extremity edema. Neuro: Awake, alert, oriented x3. No gross motor or sensory deficits. Cranial nerves II through XII intact. Gait not assessed. Labs/Diagnostic Data Labs Test 10/30/24 15:10 10/27/24 08:51 10/26/24 16:41 10/26/24 08:29 Range/Units White Blood Count 8.6 # 4.4-10.8 10^3/uL Red Blood Count 3.65 L 4.5-5.90 10^6/uL Hemoglobin 12.4 L 13.5-17.5 g/dL Hematocrit 35.3 #L 41.0-53.0 % Mean Corpuscular Volume 96.7 80.0-100.0 fL Mean Corpuscular Hemoglobin 33.9 H 28.0-32.0 pg Mean Corpuscular Hemoglobin Concent 35.1 32.0-36.0 g/dL Red Cell Distribution Width 13.0 11.8-14.3 % Platelet Count 339 140-450 10^3/uL Mean Platelet Volume 7.7 6.9-10.8 fL Neutrophils (%) (Auto) 92.7 H 37.0-80.0 % Lymphocytes (%) (Auto) 2.7 L 10.0-50.0 % Monocytes (%) (Auto) 4.6 0.0-12.0 % Eosinophils (%) (Auto) 0.0 0.0-7.0 % Basophils (%) (Auto) 0.0 0.0-2.0 % Neutrophils # (Auto) 7.9 1.6-8.6 10 ^3/uL Lymphocytes # (Auto) 0.2 L 0.4-5.4 10 ^3/uL Monocytes # (Auto) 0.4 0-1.3 10 ^3/uL Eosinophils # (Auto) 0 0-0.8 10 ^3/uL Basophils # (Auto) 0 0-0.2 10 ^3/uL Nucleated Red Blood Cells 0.1 % Sodium Level 137 136-145 mmol/L Potassium Level 3.9 3.5-5.1 mmol/L Chloride Level 101 98-107 mmol/L Carbon Dioxide Level 27 20-31 mmol/L Anion Gap 9 5-15 Blood Urea Nitrogen 20 9-23 mg/dL Creatinine 0.78 0.700-1.30 mg/dL Glomerular Filtration Rate Calc 88 >90 mL/min BUN/Creatinine Ratio 25.6 H 10.0-20.0 Serum Glucose 247 H 74-106 mg/dL Calcium Level 8.7 8.7-10.4 mg/dL Total Bilirubin 0.3 0.2-1.0 mg/dL Aspartate Amino Transferase (AST) 62 H 13-40 U/L Alanine Aminotransferase (ALT) 70 H 7-40 U/L Alkaline Phosphatase 95 46-116 U/L Total Protein 5.5 L 5.7-8.2 g/dL Albumin 3.3 3.2-4.8 g/dL Hemoglobin A1c 6.4 H <5.7 % A1C Magnesium Level 1.7 1.6-2.6 mg/dL Triglycerides Level 79 < 150 mg/dL Cholesterol Level 157 < 200 mg/dL LDL Cholesterol 112 H < 100 mg/dL HDL Cholesterol 38 L 40-59 mg/dL Thyroid Stimulating Hormone (TSH) 1.29 0.55-4.78 uIU/mL Influenza Type A Antigen Negative Negative Influenza Type B Antigen Negative Negative SARS-CoV-2 Antigen (Rapid) Negative NEGATIVE Lactic Acid Level 1.3 0.4-2.0 mmol/L Test 10/26/24 05:24 10/26/24 05:16 Range/Units Prothrombin Time 11.2 9.3-11.8 sec Prothrombin Time INR 1.06 0.9-1.15 Activated Partial Thromboplast Time 28.9 24.5-34.5 SEC Lipase 42 12-53 U/L Urine Color Light-yellow Yellow Urine Clarity Clear Clear Urine pH 6.5 5.0-9.0 Urine Specific [place] 1.013 1.001-1.035 Urine Protein Negative Negative Urine Ketones Negative Negative Urine Blood Negative Negative /uL Urine Nitrite Negative Negative Urine Bilirubin Negative Negative Urine Urobilinogen Normal Negative mg/dL Urine Leukocyte Esterase Negative Negative /uL Urine RBC <1 0 - 3 /hpf Urine Microscopic WBC < 1 0-3 /HPF Urine Squamous Epithelial Cells None seen <5 /hpf Urine Bacteria None seen None Seen /hpf Urine Glucose Normal Normal mg/dL Microbiology Date/Time Source Procedure Growth Status 10/26/24 08:31 Blood Blood Culture - Preliminary NO GROWTH AFTER 72 HOURS OF INCUBATION. Resulted Assessment Impression: Acute hypoxic respiratory failure 2/2 pneumonia Pneumonia, likely gram negative vs.gram positive Sinus bradycardia Atelectasis Plan: Supplemental oxygen Titrate to keep O2 sats above 92%. CT chest reviewed; notable for RML/RLL opacities and atelectasis. Echocardiogram reviewed; notable for EF of 55%. No valvular abnormalities. Left atrial enlargement. Cardiology recommendations appreciated for sinus bradycardia. Complete antibiotics Due to QTc prolongation, no further azithromycin indicated. Arrange for home oxygen. Incentive spirometry Monitor renal function. Monitor electrolytes. Supplement as necessary. Monitor ins and outs. Follow up as outpatient in [facility] within 2 weeks for pneumonia as well as to assess ongoing O2 requirements. CVRB of 65 - 1, low risk Patient stable for discharge from the pulmonary standpoint once home oxygen is a rranged. Family/ updated at bedside. DVT prophylaxis. Note, Dr. Tracy and Dr. Waldron were present during the discussion. Prognosis: Poor given patient's multiple co-morbidities. Rest of plan per hospitalist and other consultants. Thank you Dr. Tracy, for allowing me to participate in this patient's care. Further recommendations will depend on the patient's clinical course. Please do not hesitate to contact me if you have any questions or concerns. This medical document was created using an electronic medical record system with [employer] dictation system. Although these documentations are being carefully reviewed, there may still be some phonetic and typographical changes. The errors are purely typographical, due to imperfection on the software program, and do not reflect any compromise in the patient's medical care. Plan discussed with: Patient, Spouse, Other (CHRIS Olivia/Dr. Tracy) DONAVON WEISS MD Oct 30, 2024 22:05
[2024-10-30] MEDS: ACETAMINOPHEN 325 MG TAB PO PRN (22:43)
[2024-10-31] VITALS (15 sets, daily range): BP systolic 99–149; BP diastolic 57–79; PULSE 44–159; RESP 16–18; TEMP 97.1–98.8; O2SAT 2–100
[2024-10-31] MEDS: SODIUM CHLORIDE 0.9% 1,000 ML IV SCH (09:30)
[2024-10-31] MEDS: SODIUM CHLORIDE 0.9% 500 ML IV ONE (09:30)
[2024-10-31] MEDS ORDERED: ENOXAPARIN SOD 100 MG/1 ML SYRINGE SC SCH (10:00)
[2024-10-31] MEDS ORDERED: AMIODARONE BOLUS KIT 100 ML IV ONE (10:00)
[2024-10-31] MEDS ORDERED: AMIODARONE 360mg/200mL PREMIX 200 ML IV ONE (10:15)
[2024-10-31] MEDS: METOPROLOL TARTRATE 1MG/1ML-5ML VIAL IV ONE (10:23)
--- NOTE | 2024-10-31 12:50 | DVHPN2 ---
Subjective Asymptomatic AFib with RVR Patient denies chest pain or palpitations, dizziness or shortness of breath Changes from previous H/P or p: Changes Cardiovascular: No Chest Pain, No Palpitations, No Orthopnea, No Paroxysmal Noc. Dyspnea, No Edema, No Lt Headedness; Other (AFib with RVR) Objective Vitals Vital Signs Date Time Temp Pulse Resp B/P (MAP) Pulse Ox O2 Delivery O2 Flow Rate FiO2 10/31/24 11:18 78 18 100 10/31/24 11:09 Nasal Cannula* 2 10/31/24 10:23 114/73 10/31/24 09:00 97.6 97.6 Intake/Output Intake and Output 10/31/24 07:00 Intake Total 2140 ml Output Total 1800 ml Balance 340 ml Intake Oral 790 ml IV Total 1350 ml Output Urine Total 1800 ml # Bowel Movements 1 Medications Current Medications Medications Dose Ordered Sig/Gama Route Start Time Stop Time Status Last Admin Dose Admin Ipratropium [place] 0.5 mg Q6HWA NEB 10/26/24 12:00 10/31/24 11:09 0.5 MG Methylprednisolone Sodium Succinate 40 mg BID IV 10/26/24 10:00 10/31/24 10:16 40 MG Cefepime HCl 50 ml @ 12.5 mls/hr Q8HR IV 10/26/24 14:00 10/31/24 05:46 12.5 MLS/HR Levothyroxine Sodium 25 mcg QAM PO 10/27/24 07:00 10/31/24 06:09 25 MCG Levothyroxine Sodium 50 mcg QAM PO 10/27/24 07:00 10/31/24 06:09 50 MCG Acetaminophen/ Hydrocodone Bitart 1 tab Q4HP PRN PO 10/26/24 13:45 Ondansetron HCl 4 mg Q4HP PRN IV 10/26/24 13:45 Docusate Sodium 100 mg BIDPRN PRN PO 10/26/24 13:45 Acetaminophen 650 mg Q6HP PRN PO 10/26/24 13:45 10/30/24 22:43 650 MG Morphine Sulfate 2 mg Q4HPRN PRN IV 10/26/24 13:45 10/26/24 22:57 2 MG Nitroglycerin 0.4 mg Q5MINP PRN SL 10/26/24 13:45 Morphine Sulfate 2 mg Q30M PRN IV 10/26/24 13:45 Azithromycin 250 ml @ 125 mls/hr DAILY IV 10/26/24 13:45 Hold Albuterol 2.5 mg Q6HWA NEB 10/27/24 12:00 10/31/24 11:09 2.5 MG Aspirin 81 mg DAILY PO 11/01/24 10:00 Sodium Chloride 1,000 ml @ 75 mls/hr [id number] IV 10/31/24 09:30 Enoxaparin Sodium 70 mg Q12HR SC 10/31/24 22:00 Laboratory Results Laboratory Tests 10/30/24 15:10 Chemistry Test 10/30/24 15:10 10/31/24 10:13 Albumin 3.3 g/dL (3.2-4.8) Calcium Level 8.7 mg/dL (8.7-10.4) Total Protein 5.5 g/dL (5.7-8.2) L Magnesium Level 1.9 mg/dL (1.6-2.6) LFT Test 10/30/24 15:10 Alanine Aminotransferase (ALT) 70 U/L (7-40) H Alkaline Phosphatase 95 U/L (46-116) Aspartate Amino Transferase (AST) 62 U/L (13-40) H Total Bilirubin 0.3 mg/dL (0.2-1.0) Urinalysis Test 10/26/24 05:16 Urine Color Light-yellow (Yellow) Urine Clarity Clear (Clear) Urine pH 6.5 (5.0-9.0) Urine Specific [place] 1.013 (1.001-1.035) Urine Protein Negative (Negative) Urine Ketones Negative (Negative) Urine Blood Negative /uL (Negative) Urine Nitrite Negative (Negative) Urine Bilirubin Negative (Negative) Urine Urobilinogen Normal mg/dL (Negative) Urine Leukocyte Esterase Negative /uL (Negative) Urine RBC <1 /hpf (0 - 3) Urine Microscopic WBC < 1 /HPF (0-3) Urine Squamous Epithelial Cells None seen /hpf (<5) Urine Bacteria None seen /hpf (None Seen) Urine Glucose Normal mg/dL (Normal) Microbiology Microbiology Date/Time Source Procedure Growth Status 10/26/24 08:31 Blood Blood Culture - Final NO GROWTH AFTER 5 DAYS OF INCUBATION. Complete Assessment/Plan Assessment/Plan Sinus bradycardia Ruled out structural heart disease Hypertension Pneumonia Thyroid disease Plan (Dr. Evangelista): Acute AFib with RVR, now in sinus rhythm Hypomagnesemia NSTEMI, likely type 2 due to above The patient was initially admitted for sinus bradycardia and date of develop arterial fibrillation with RVR, which successfully converted to normal sinus rhythm after IV metoprolol 2.5mg and fluids. He remains asymptomatic--denying chest pain, dyspnea, dizziness, or palpitations. Troponin has increased from 20-60ng/L, but serial ECG shows no dynamic ischemic changes, and the patient has no clinical features suggestive of acute coronary syndrome. This mild troponin elevation is likely due to demand ischemia or rate-related myocardial strained during the episodes of AFib with RVR. His CHADS-VASc score is 3, and HAS BLED- score is 2, supporting the decision to initiate coagulation. A low dose of metoprolol 12.5 mg daily was started cautiously for rate control given prior sinus bradycardia. The patient was noted to be hypomagnesemic, and has been started on magnesium oxide 400 mg b.i.d.. Recommending continuing telemetry, trending troponins, monitoring vitals and rhythm closely. If troponins continue to rise or if symptoms develop, consider further ischemic evaluation. Otherwise, no indication for invasive testing at this time. Cardiology to continue to follow. Plan discussed with: Patient My Orders Orders - GOYO CALDWELL Procedure Category Date Status Time * Cardiology Consult CONS 10/31/24 Transmitted 09:27 Sodium Chloride 0.9% PHA 10/31/24 In Process 09:30 Troponin-I Hs LAB 10/31/24 In Process 10:29 Troponin-I Hs LAB 10/31/24 Logged 12:29 Electrocardigram EKG 10/31/24 Logged 09:29 Enoxaparin Sodium PHA 10/31/24 In Process (Lovenox) 22:00 Electrocardigram EKG 10/31/24 Logged 12:02 Electrocardigram EKG 10/31/24 Logged 13:02 Electrocardigram EKG 10/31/24 Logged 15:02 Thyroid Stimulating LAB 10/31/24 Logged Hormone 14:00 Date of Service: Oct 31, 2024 Billing Provider: JAH EVANGELISTA MD Common Visit Codes: CONSULT ONLY Consultation Codes: [id number] CONSULT <45MIN GOYO CALDWELL Oct 31, 2024 12:50
[2024-10-31] MEDS: ENOXAPARIN SOD 80 MG/0.8ML SYRINGE SC ONE (12:58)
[2024-10-31] MEDS: MAGNESIUM SULFATE 1GM/100ML 100 ML IV SCH (15:11)
[2024-10-31] MEDS ORDERED: AMIODARONE 360mg/200mL PREMIX 200 ML IV SCH (16:15)
--- NOTE | 2024-10-31 18:31 | DVHPN2 ---
Subjective OVERNIGHT EVENTS NOTED. PATIENT'S WAS HAPPEN TO HAVE BRADYCARDIA BUT CURRENTLY ASYMPTOMATIC CARDIOLOGY IS ON BOARD. Changes from previous H/P or p: No Changes Cardiovascular: No Chest Pain, No Palpitations, No Orthopnea, No Paroxysmal Noc. Dyspnea, No Edema, No Lt Headedness; Other (AFib with RVR) Objective Vitals Vital Signs Date Time Temp Pulse Resp B/P (MAP) Pulse Ox O2 Delivery O2 Flow Rate FiO2 10/31/24 16:56 98.8 65 18 127/73 (91) 96 98.8 10/31/24 11:09 Nasal Cannula* 2 28 Intake/Output Intake and Output 10/31/24 07:00 Intake Total 2140 ml Output Total 1800 ml Balance 340 ml Intake Oral 790 ml IV Total 1350 ml Output Urine Total 1800 ml # Bowel Movements 1 Exam HEENT PUPILS ARE REACTIVE NECK IS SUPPLE CV IS S1-S2 REGULAR RATE AND RHYTHM RESPIRATORY DIMINISHED BREATH SOUNDS RIGHT LUNG BASE GI POSITIVE BOWEL SOUND EXTREMITY NO EDEMA 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 MOTOR DEFICIT Medications Current Medications Medications Dose Ordered Sig/Gama Route Start Time Stop Time Status Last Admin Dose Admin Ipratropium [place] 0.5 mg Q6HWA NEB 10/26/24 12:00 10/31/24 11:09 0.5 MG Methylprednisolone Sodium Succinate 40 mg BID IV 10/26/24 10:00 10/31/24 10:16 40 MG Cefepime HCl 50 ml @ 12.5 mls/hr Q8HR IV 10/26/24 14:00 10/31/24 17:37 12.5 MLS/HR Levothyroxine Sodium 25 mcg QAM PO 10/27/24 07:00 10/31/24 06:09 25 MCG Levothyroxine Sodium 50 mcg QAM PO 10/27/24 07:00 10/31/24 06:09 50 MCG Acetaminophen/ Hydrocodone Bitart 1 tab Q4HP PRN PO 10/26/24 13:45 Ondansetron HCl 4 mg Q4HP PRN IV 10/26/24 13:45 Docusate Sodium 100 mg BIDPRN PRN PO 10/26/24 13:45 Acetaminophen 650 mg Q6HP PRN PO 10/26/24 13:45 10/30/24 22:43 650 MG Morphine Sulfate 2 mg Q4HPRN PRN IV 10/26/24 13:45 10/26/24 22:57 2 MG Nitroglycerin 0.4 mg Q5MINP PRN SL 10/26/24 13:45 Morphine Sulfate 2 mg Q30M PRN IV 10/26/24 13:45 Azithromycin 250 ml @ 125 mls/hr DAILY IV 10/26/24 13:45 Hold Albuterol 2.5 mg Q6HWA NEB 10/27/24 12:00 10/31/24 11:09 2.5 MG Aspirin 81 mg DAILY PO 11/01/24 10:00 Sodium Chloride 1,000 ml @ 75 mls/hr [id number] IV 10/31/24 09:30 10/31/24 09:30 75 MLS/HR Enoxaparin Sodium 70 mg Q12HR SC 10/31/24 22:00 Apixaban 2.5 mg BID PO 10/31/24 22:00 Future Hold Metoprolol Tartrate 12.5 mg DAILY PO 11/01/24 10:00 Future Hold Atorvastatin Calcium 40 mg HS PO 10/31/24 22:00 Magnesium Oxide 400 mg BID PO 10/31/24 22:00 Laboratory Results Laboratory Tests 10/30/24 15:10 Chemistry Test 10/31/24 10:13 Magnesium Level 1.9 mg/dL (1.6-2.6) HgA1c, TSH Test 10/31/24 14:01 Thyroid Stimulating Hormone (TSH) 1.92 uIU/mL (0.55-4.78) Urinalysis Test 10/26/24 05:16 Urine Color Light-yellow (Yellow) Urine Clarity Clear (Clear) Urine pH 6.5 (5.0-9.0) Urine Specific [place] 1.013 (1.001-1.035) Urine Protein Negative (Negative) Urine Ketones Negative (Negative) Urine Blood Negative /uL (Negative) Urine Nitrite Negative (Negative) Urine Bilirubin Negative (Negative) Urine Urobilinogen Normal mg/dL (Negative) Urine Leukocyte Esterase Negative /uL (Negative) Urine RBC <1 /hpf (0 - 3) Urine Microscopic WBC < 1 /HPF (0-3) Urine Squamous Epithelial Cells None seen /hpf (<5) Urine Bacteria None seen /hpf (None Seen) Urine Glucose Normal mg/dL (Normal) Microbiology Microbiology Date/Time Source Procedure Growth Status 10/26/24 08:31 Blood Blood Culture - Final NO GROWTH AFTER 5 DAYS OF INCUBATION. Complete Assessment/Plan Assessment/Plan 83-year-old male with a known history of hypothyroidism presented to the hospital with right-sided abdominal pain found to have 1. Right-sided abdominal pain ruled out acute appendicitis although clinically less likely 2. Right middle and right lower lobes pneumonia 3. Hypothyroidism 4. AFib with bradycardia -IV antibiotics, diet as tolerated , we will assess home oxygen requirement upon discharge. -cardiology follow up Plan discussed with: Patient My Orders Orders - AZRA BURK MD Procedure Category Date Status Time Aspirin Tablet PHA 11/01/24 In Process 10:00 Date of Service: Oct 30, 2024 Billing Provider: AZRA BURK MD Common Visit Codes: NOT BILLABLE AZRA BURK MD Oct 31, 2024 18:31
[2024-10-31] MEDS: MAGNESIUM OXIDE 400 MG TAB PO SCH (21:44)
[2024-10-31] MEDS: ATORVASTATIN 20 MG TAB PO SCH (21:44)
[2024-10-31] MEDS: ENOXAPARIN SOD 80 MG/0.8ML SYRINGE SC SCH (21:45)
[2024-10-31] MEDS ORDERED: APIXABAN 2.5 MG TAB PO SCH (22:00)
[2024-10-31] MEDS ORDERED: METOPROLOL TARTRATE 25 MG TAB PO SCH (22:00)
--- NOTE | 2024-10-31 23:43 | DVHPN2 ---
Progress Note - Dictate Date Seen: Oct 31, 2024 Medical Necessity Reason Pt with a Central, PICC or Fol: No Subjective Patient seen and examined at bedside. Remains on supplemental oxygen Overnight events reviewed. vital signs Vital Sign Date Time Temp Pulse Resp B/P (MAP) Pulse Ox O2 Delivery O2 Flow Rate FiO2 10/31/24 21:00 97.6 50 17 104/62 (76) 97 97.6 10/31/24 19:25 Nasal Cannula* 2 28 Total Intake and Output 10/30/24 10/30/24 10/31/24 15:00 23:00 07:00 Intake Total 410 ml 1480 ml 250 ml Output Total 1000 ml 800 ml Balance 410 ml 480 ml -550 ml medications Current Medications Medications Dose Ordered Sig/Gama Route Start Time Stop Time Status Last Admin Dose Admin Ipratropium [place] 0.5 mg Q6HWA NEB 10/26/24 12:00 10/31/24 19:25 0.5 MG Methylprednisolone Sodium Succinate 40 mg BID IV 10/26/24 10:00 10/31/24 21:44 40 MG Cefepime HCl 50 ml @ 12.5 mls/hr Q8HR IV 10/26/24 14:00 10/31/24 21:45 12.5 MLS/HR Levothyroxine Sodium 25 mcg QAM PO 10/27/24 07:00 10/31/24 06:09 25 MCG Levothyroxine Sodium 50 mcg QAM PO 10/27/24 07:00 10/31/24 06:09 50 MCG Acetaminophen/ Hydrocodone Bitart 1 tab Q4HP PRN PO 10/26/24 13:45 Ondansetron HCl 4 mg Q4HP PRN IV 10/26/24 13:45 Docusate Sodium 100 mg BIDPRN PRN PO 10/26/24 13:45 Acetaminophen 650 mg Q6HP PRN PO 10/26/24 13:45 10/30/24 22:43 650 MG Morphine Sulfate 2 mg Q4HPRN PRN IV 10/26/24 13:45 10/26/24 22:57 2 MG Nitroglycerin 0.4 mg Q5MINP PRN SL 10/26/24 13:45 Morphine Sulfate 2 mg Q30M PRN IV 10/26/24 13:45 Azithromycin 250 ml @ 125 mls/hr DAILY IV 10/26/24 13:45 Hold Albuterol 2.5 mg Q6HWA NEB 10/27/24 12:00 10/31/24 19:25 2.5 MG Aspirin 81 mg DAILY PO 11/01/24 10:00 Sodium Chloride 1,000 ml @ 75 mls/hr [id number] IV 10/31/24 09:30 10/31/24 22:36 75 MLS/HR Enoxaparin Sodium 70 mg Q12HR SC 10/31/24 22:00 10/31/24 21:45 70 MG Apixaban 2.5 mg BID PO 10/31/24 22:00 Hold Metoprolol Tartrate 12.5 mg DAILY PO 11/01/24 10:00 Future Hold Atorvastatin Calcium 40 mg HS PO 10/31/24 22:00 10/31/24 21:44 40 MG Magnesium Oxide 400 mg BID PO 10/31/24 22:00 10/31/24 21:44 400 MG objective Gen.: Patient lying in bed in no apparent distress. On supplemental oxygen. Head: Normocephalic, atraumatic. Eyes: EOMI/PERRLA. Ears: Normal hearing. Normal anatomy. Neck/trachea: Trachea midline, supple. Nose: Normal external anatomy. Mouth: Moist mucous membranes. Chest: Decreased air entry bilaterally. No wheezing or rhonchi. Cardiovascular: Positive S1, positive S2. Regular rate and rhythm. Abdomen: Positive bowel sounds in all 4 quadrants. Soft, non-tender, non- distended. : Deferred. Rectal: Deferred. Skin: Warm, dry. Intact. Extremities: 2+ radial pulses bilaterally. No lower extremity edema. Neuro: Awake, alert, oriented x3. No gross motor or sensory deficits. Cranial nerves II through XII intact. Gait not assessed. laboratory and microbiology Laboratory Tests 10/30/24 15:10 Test 10/30/24 15:10 Range/Units Serum Glucose 247 H 74-106 mg/dL Assessment/Plan Impression: Acute hypoxic respiratory failure 2/2 pneumonia Pneumonia, likely gram negative vs.gram positive Sinus bradycardia Atelectasis Events: Remains on supplemental oxygen, 2 LPM NC Taper O2 as tolerated Troponin trending up Cardiology recommendations appreciated Upgrade to tele. Continue bronchodilators Continue antibiotics Incentive spirometry Labs and imaging reviewed. Rest of plan as noted below. Plan: Supplemental oxygen Titrate to keep O2 sats above 92%. CT chest reviewed; notable for RML/RLL opacities and atelectasis. Echocardiogram reviewed; notable for EF of 55%. No valvular abnormalities. Left atrial enlargement. Cardiology recommendations appreciated for sinus bradycardia. Follow troponins CVRB of 65 - 1, low risk Antibiotics Due to QTc prolongation, no further azithromycin indicated. Incentive spirometry Monitor renal function. Monitor electrolytes. Supplement as necessary. Monitor ins and outs. DVT prophylaxis. Prognosis: Poor given patient's multiple co-morbidities. Rest of plan per hospitalist and other consultants. Thank you Dr. Tracy, for allowing me to participate in this patient's care. Further recommendations will depend on the patient's clinical course. Please do not hesitate to contact me if you have any questions or concerns. This medical document was created using an electronic medical record system with [employer] dictation system. Although these documentations are being carefully reviewed, there may still be some phonetic and typographical changes. The errors are purely typographical, due to imperfection on the software program, and do not reflect any compromise in the patient's medical care. Plan discussed with: Patient, Other (CHRIS Stephen) DONAVON WEISS MD Oct 31, 2024 23:43
--- NOTE | 2024-10-31 23:46 | DVHPN2 ---
Consult Progress Note Date Seen: Oct 31, 2024 Subjective Other Systems: Patient was seen and evaluated in follow up. Patient has asymptomatic AFib with RVR. Patient is now back in NSR. Patient denies chest pain or palpitations, dizziness or shortness of breath. TROP 154. Telemetry reviewed. Objective vital signs Vital Sign Date Time Temp Pulse Resp B/P (MAP) Pulse Ox O2 Delivery O2 Flow Rate FiO2 10/31/24 13:00 97.1 69 16 99/62 (74) 95 97.1 10/31/24 11:09 Nasal Cannula* 2 28 Total Intake and Output 10/30/24 10/30/24 10/31/24 15:00 23:00 07:00 Intake Total 410 ml 1480 ml 250 ml Output Total 1000 ml 800 ml Balance 410 ml 480 ml -550 ml medications Current Medications Medications Dose Ordered Sig/Gama Route Start Time Stop Time Status Last Admin Dose Admin Ipratropium [place] 0.5 mg Q6HWA NEB 10/26/24 12:00 10/31/24 11:09 0.5 MG Methylprednisolone Sodium Succinate 40 mg BID IV 10/26/24 10:00 10/31/24 10:16 40 MG Cefepime HCl 50 ml @ 12.5 mls/hr Q8HR IV 10/26/24 14:00 10/31/24 05:46 12.5 MLS/HR Levothyroxine Sodium 25 mcg QAM PO 10/27/24 07:00 10/31/24 06:09 25 MCG Levothyroxine Sodium 50 mcg QAM PO 10/27/24 07:00 10/31/24 06:09 50 MCG Acetaminophen/ Hydrocodone Bitart 1 tab Q4HP PRN PO 10/26/24 13:45 Ondansetron HCl 4 mg Q4HP PRN IV 10/26/24 13:45 Docusate Sodium 100 mg BIDPRN PRN PO 10/26/24 13:45 Acetaminophen 650 mg Q6HP PRN PO 10/26/24 13:45 10/30/24 22:43 650 MG Morphine Sulfate 2 mg Q4HPRN PRN IV 10/26/24 13:45 10/26/24 22:57 2 MG Nitroglycerin 0.4 mg Q5MINP PRN SL 10/26/24 13:45 Morphine Sulfate 2 mg Q30M PRN IV 10/26/24 13:45 Azithromycin 250 ml @ 125 mls/hr DAILY IV 10/26/24 13:45 Hold Albuterol 2.5 mg Q6HWA NEB 10/27/24 12:00 10/31/24 11:09 2.5 MG Aspirin 81 mg DAILY PO 11/01/24 10:00 Sodium Chloride 1,000 ml @ 75 mls/hr [id number] IV 10/31/24 09:30 10/31/24 09:30 75 MLS/HR Enoxaparin Sodium 70 mg Q12HR SC 10/31/24 22:00 Apixaban 2.5 mg BID PO 10/31/24 22:00 Future Hold Metoprolol Tartrate 12.5 mg DAILY PO 11/01/24 10:00 UNV Magnesium Sulfate/ Dextrose 100 ml @ 100 mls/hr Q1HR IV 10/31/24 14:00 10/31/24 15:59 Atorvastatin Calcium 40 mg HS PO 10/31/24 22:00 Magnesium Oxide 400 mg BID PO 10/31/24 22:00 Examination: GENERAL:Normal, HEENT:Normal, NECK:Normal, LUNGS:Normal, CVS:Normal, ABDOMEN:Normal, MSK:Normal, SKIN:Normal, NEURO:Normal laboratory and microbiology Laboratory Tests 10/30/24 15:10 Test 10/30/24 15:10 Range/Units Serum Glucose 247 H 74-106 mg/dL Problem List/Assessment/Plan Problem List/Assessment/Plan Assessment/Plan Sinus bradycardia. Ruled out structural heart disease. Hypertension. Pneumonia. Thyroid disease. Acute AFib with RVR, now in sinus rhythm. Hypomagnesemia. NSTEMI, likely type 2 due to above. Continued all current supportive medical care. Patient has been seen by Concepcion Tobar NP on my behalf, her and I discussed the plan with the patient. The patient was initially admitted for sinus bradycardia and date of develop arterial fibrillation with RVR, which successfully converted to normal sinus rhythm after IV metoprolol 2.5mg and fluids. He remains asymptomatic--denying chest pain, dyspnea, dizziness, or palpitations. Troponin has increased from 20-60ng/L, but serial ECG shows no dynamic ischemic changes, and the patient has no clinical features suggestive of acute coronary syndrome. This mild troponin elevation is likely due to demand ischemia or rate-related myocardial strained during the episodes of AFib with RVR. His CHADS-VASc score is 3, and HAS BLED- score is 2, supporting the decision to initiate coagulation. A low dose of metoprolol 12.5 mg daily was started cautiously for rate control given prior sinus bradycardia. The patient was noted to be hypomagnesemic, and has been started on magnesium oxide 400 mg b.i.d.. Recommending continuing telemetry, trending troponins, monitoring vitals and rhythm closely. If troponins continue to rise or if symptoms develop, consider further ischemic evaluation. Otherwise, no indication for invasive testing at this time. Cardiology to continue to follow. Additional plan as per the hospital course. Plan discussed with: Patient Date of Service: Oct 31, 2024 Billing Provider: JAH EVANGELISTA MD Cardiology Common Codes: [id number] INP/OBS CARE (High) Cardiology Consultation Codes: [id number] CONSULT <45MIN JAH EVANGELISTA MD Oct 31, 2024 15:10
[2024-11-01] VITALS (16 sets, daily range): BP systolic 103–164; BP diastolic 54–82; PULSE 42–97; RESP 14–20; TEMP 97.8–98.4; O2SAT 47–100
[2024-11-01 09:13] LABS: Albumin 3.3 g/dL (3.2-4.8); Alkaline Phosphatase 77 U/L (46-116); Anion Gap 11 (5-15); BUN/Creatinine Ratio 26.9 (10.0-20.0); Bilirubin, Total 0.4 mg/dL (0.2-1.0); Blood Urea Nitrogen 21 mg/dL (9-23); Carbon Dioxide 22 mmol/L (20-31); Chloride 105 mmol/L (98-107); Potassium 4.5 mmol/L (3.5-5.1); Sodium 138 mmol/L (136-145)
[2024-11-01 09:22] LABS: Alanine Aminotransferase 86 U/L (7-40); Calcium 8.3 mg/dL (8.7-10.4); Glucose 206 mg/dL (74-106); Total Protein 5.3 g/dL (5.7-8.2)
[2024-11-01] MEDS ORDERED: METOPROLOL TARTRATE 25 MG TAB PO SCH (10:00)
--- NOTE | 2024-11-01 17:24 | DVHPN2 ---
Subjective Patient's bradycardia has been resolved, please discontinue Lovenox we will switch to Eliquis renal dose. Changes from previous H/P or p: No Changes Cardiovascular: No Chest Pain, No Palpitations, No Orthopnea, No Paroxysmal Noc. Dyspnea, No Edema, No Lt Headedness; Other (AFib with RVR) Objective Vitals Vital Signs Date Time Temp Pulse Resp B/P (MAP) Pulse Ox O2 Delivery O2 Flow Rate FiO2 11/01/24 13:00 98.2 60 16 143/81 (101) 98 98.2 11/01/24 09:31 2.0 28 11/01/24 08:00 Room Air* Intake/Output Intake and Output 11/01/24 07:00 Intake Total 790 ml Output Total 700 ml Balance 90 ml Intake Oral 540 ml IV Total 250 ml Output Urine Total 700 ml # Voids 2 Exam HEENT PUPILS ARE REACTIVE NECK IS SUPPLE CV IS S1-S2 REGULAR RATE AND RHYTHM RESPIRATORY DIMINISHED BREATH SOUNDS RIGHT LUNG BASE GI POSITIVE BOWEL SOUND EXTREMITY NO EDEMA 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 Medications Current Medications Medications Dose Ordered Sig/Gama Route Start Time Stop Time Status Last Admin Dose Admin Ipratropium [place] 0.5 mg Q6HWA NEB 10/26/24 12:00 11/01/24 11:32 0.5 MG Methylprednisolone Sodium Succinate 40 mg BID IV 10/26/24 10:00 11/01/24 09:34 40 MG Cefepime HCl 50 ml @ 12.5 mls/hr Q8HR IV 10/26/24 14:00 11/01/24 13:43 12.5 MLS/HR Levothyroxine Sodium 25 mcg QAM PO 10/27/24 07:00 11/01/24 06:39 25 MCG Levothyroxine Sodium 50 mcg QAM PO 10/27/24 07:00 11/01/24 06:39 50 MCG Acetaminophen/ Hydrocodone Bitart 1 tab Q4HP PRN PO 10/26/24 13:45 Ondansetron HCl 4 mg Q4HP PRN IV 10/26/24 13:45 Docusate Sodium 100 mg BIDPRN PRN PO 10/26/24 13:45 Acetaminophen 650 mg Q6HP PRN PO 10/26/24 13:45 10/30/24 22:43 650 MG Morphine Sulfate 2 mg Q4HPRN PRN IV 10/26/24 13:45 10/26/24 22:57 2 MG Nitroglycerin 0.4 mg Q5MINP PRN SL 10/26/24 13:45 Morphine Sulfate 2 mg Q30M PRN IV 10/26/24 13:45 Azithromycin 250 ml @ 125 mls/hr DAILY IV 10/26/24 13:45 Hold Albuterol 2.5 mg Q6HWA NEB 10/27/24 12:00 11/01/24 11:32 2.5 MG Aspirin 81 mg DAILY PO 11/01/24 10:00 11/01/24 09:35 81 MG Sodium Chloride 1,000 ml @ 75 mls/hr [id number] IV 10/31/24 09:30 11/01/24 13:43 75 MLS/HR Metoprolol Tartrate 12.5 mg DAILY PO 11/01/24 10:00 Hold Atorvastatin Calcium 40 mg HS PO 10/31/24 22:00 10/31/24 21:44 40 MG Magnesium Oxide 400 mg BID PO 10/31/24 22:00 11/01/24 09:35 400 MG Apixaban 2.5 mg BID PO 11/01/24 22:00 UNV Amlodipine Bes[place] 5 mg DAILY PO 11/02/24 10:00 Laboratory Results Laboratory Tests 10/30/24 15:10 11/01/24 04:21 Chemistry Test 11/01/24 04:21 Albumin 3.3 g/dL (3.2-4.8) Calcium Level 8.3 mg/dL (8.7-10.4) L Magnesium Level 2.3 mg/dL (1.6-2.6) Total Protein 5.3 g/dL (5.7-8.2) L LFT Test 11/01/24 04:21 Alanine Aminotransferase (ALT) 86 U/L (7-40) H Alkaline Phosphatase 77 U/L (46-116) Aspartate Amino Transferase (AST) 51 U/L (13-40) H Total Bilirubin 0.4 mg/dL (0.2-1.0) Urinalysis Test 10/26/24 05:16 Urine Color Light-yellow (Yellow) Urine Clarity Clear (Clear) Urine pH 6.5 (5.0-9.0) Urine Specific [place] 1.013 (1.001-1.035) Urine Protein Negative (Negative) Urine Ketones Negative (Negative) Urine Blood Negative /uL (Negative) Urine Nitrite Negative (Negative) Urine Bilirubin Negative (Negative) Urine Urobilinogen Normal mg/dL (Negative) Urine Leukocyte Esterase Negative /uL (Negative) Urine RBC <1 /hpf (0 - 3) Urine Microscopic WBC < 1 /HPF (0-3) Urine Squamous Epithelial Cells None seen /hpf (<5) Urine Bacteria None seen /hpf (None Seen) Urine Glucose Normal mg/dL (Normal) Microbiology Microbiology Date/Time Source Procedure Growth Status 10/26/24 08:31 Blood Blood Culture - Final NO GROWTH AFTER 5 DAYS OF INCUBATION. Complete Assessment/Plan Assessment/Plan 83-year-old male with a known history of hypothyroidism presented to the hospital with right-sided abdominal pain found to have 1. Right-sided abdominal pain ruled out acute appendicitis 2. Right middle and right lower lobes pneumonia 3. Hypothyroidism 4. AFib with bradycardia, currently improved 5. 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 Plan discussed with: Patient, Spouse My Orders Orders - AZRA BURK MD Procedure Category Date Status Time Apixaban (Eliquis) PHA 11/01/24 Logged 22:00 Amlodipine Tablet PHA 11/02/24 In Process (Norvasc Tablet) 10:00 Date of Service: Nov 01, 2024 Billing Provider: AZRA BURK MD Common Visit Codes: NOT BILLABLE AZRA BURK MD Nov 01, 2024 17:24
[2024-11-01] MEDS: HYDROcodone-ACET 5/325MG TAB PO PRN (18:06)
--- NOTE | 2024-11-01 18:53 | DVHPN2 ---
Subjective Sinus rhythm Patient denies chest pain or palpitations, dizziness or shortness of breath Changes from previous H/P or p: No Changes Cardiovascular: No Chest Pain, No Palpitations, No Orthopnea, No Paroxysmal Noc. Dyspnea, No Edema, No Lt Headedness; Other (AFib with RVR) Objective Vitals Vital Signs Date Time Temp Pulse Resp B/P (MAP) Pulse Ox O2 Delivery O2 Flow Rate FiO2 11/01/24 18:46 97 18 134/54 (80) 47 11/01/24 17:00 98.1 98.1 11/01/24 09:31 2.0 28 11/01/24 08:00 Room Air* Intake/Output Intake and Output 11/01/24 07:00 Intake Total 790 ml Output Total 700 ml Balance 90 ml Intake Oral 540 ml IV Total 250 ml Output Urine Total 700 ml # Voids 2 Medications Current Medications Medications Dose Ordered Sig/Gama Route Start Time Stop Time Status Last Admin Dose Admin Ipratropium [place] 0.5 mg Q6HWA NEB 10/26/24 12:00 11/01/24 11:32 0.5 MG Methylprednisolone Sodium Succinate 40 mg BID IV 10/26/24 10:00 11/01/24 09:34 40 MG Cefepime HCl 50 ml @ 12.5 mls/hr Q8HR IV 10/26/24 14:00 11/01/24 13:43 12.5 MLS/HR Levothyroxine Sodium 25 mcg QAM PO 10/27/24 07:00 11/01/24 06:39 25 MCG Levothyroxine Sodium 50 mcg QAM PO 10/27/24 07:00 11/01/24 06:39 50 MCG Acetaminophen/ Hydrocodone Bitart 1 tab Q4HP PRN PO 10/26/24 13:45 11/01/24 18:06 1 TAB Ondansetron HCl 4 mg Q4HP PRN IV 10/26/24 13:45 Docusate Sodium 100 mg BIDPRN PRN PO 10/26/24 13:45 Acetaminophen 650 mg Q6HP PRN PO 10/26/24 13:45 10/30/24 22:43 650 MG Morphine Sulfate 2 mg Q4HPRN PRN IV 10/26/24 13:45 10/26/24 22:57 2 MG Nitroglycerin 0.4 mg Q5MINP PRN SL 10/26/24 13:45 Morphine Sulfate 2 mg Q30M PRN IV 10/26/24 13:45 Azithromycin 250 ml @ 125 mls/hr DAILY IV 10/26/24 13:45 Hold Albuterol 2.5 mg Q6HWA NEB 10/27/24 12:00 11/01/24 11:32 2.5 MG Aspirin 81 mg DAILY PO 11/01/24 10:00 11/01/24 09:35 81 MG Sodium Chloride 1,000 ml @ 75 mls/hr [id number] IV 10/31/24 09:30 11/01/24 13:43 75 MLS/HR Metoprolol Tartrate 12.5 mg DAILY PO 11/01/24 10:00 Hold Atorvastatin Calcium 40 mg HS PO 10/31/24 22:00 10/31/24 21:44 40 MG Magnesium Oxide 400 mg BID PO 10/31/24 22:00 11/01/24 09:35 400 MG Apixaban 2.5 mg BID PO 11/01/24 22:00 Amlodipine Besylate 5 mg DAILY PO 11/02/24 10:00 Laboratory Results Laboratory Tests 10/30/24 15:10 11/01/24 04:21 Chemistry Test 11/01/24 04:21 Albumin 3.3 g/dL (3.2-4.8) Calcium Level 8.3 mg/dL (8.7-10.4) L Magnesium Level 2.3 mg/dL (1.6-2.6) Total Protein 5.3 g/dL (5.7-8.2) L LFT Test 11/01/24 04:21 Alanine Aminotransferase (ALT) 86 U/L (7-40) H Alkaline Phosphatase 77 U/L (46-116) Aspartate Amino Transferase (AST) 51 U/L (13-40) H Total Bilirubin 0.4 mg/dL (0.2-1.0) Urinalysis Test 10/26/24 05:16 Urine Color Light-yellow (Yellow) Urine Clarity Clear (Clear) Urine pH 6.5 (5.0-9.0) Urine Specific [place] 1.013 (1.001-1.035) Urine Protein Negative (Negative) Urine Ketones Negative (Negative) Urine Blood Negative /uL (Negative) Urine Nitrite Negative (Negative) Urine Bilirubin Negative (Negative) Urine Urobilinogen Normal mg/dL (Negative) Urine Leukocyte Esterase Negative /uL (Negative) Urine RBC <1 /hpf (0 - 3) Urine Microscopic WBC < 1 /HPF (0-3) Urine Squamous Epithelial Cells None seen /hpf (<5) Urine Bacteria None seen /hpf (None Seen) Urine Glucose Normal mg/dL (Normal) Microbiology Microbiology Date/Time Source Procedure Growth Status 10/26/24 08:31 Blood Blood Culture - Final NO GROWTH AFTER 5 DAYS OF INCUBATION. Complete Assessment/Plan Assessment/Plan Sinus bradycardia Ruled out structural heart disease Hypertension Pneumonia Thyroid disease Plan (Dr. Evangelista): Acute AFib with RVR, now in sinus rhythm Hypomagnesemia NSTEMI, likely type 2 due to above The patient was initially admitted for sinus bradycardia and date of develop arterial fibrillation with RVR, which successfully converted to normal sinus rhythm after IV metoprolol 2.5mg and fluids. He remains asymptomatic--denying chest pain, dyspnea, dizziness, or palpitations. Troponin has increased from 20-60ng/L, but serial ECG shows no dynamic ischemic changes, and the patient has no clinical features suggestive of acute coronary syndrome. This mild troponin elevation is likely due to demand ischemia or rate-related myocardial strained during the episodes of AFib with RVR. His CHADS-VASc score is 3, and HAS BLED- score is 2, supporting the decision to initiate coagulation. A low dose of metoprolol 12.5 mg daily was started cautiously for rate control given prior sinus bradycardia. The patient was noted to be hypomagnesemic, and has been started on magnesium oxide 400 mg b.i.d.. Recommending continuing telemetry, trending troponins, monitoring vitals and rhythm closely. If troponins continue to rise or if symptoms develop, consider further ischemic evaluation. Otherwise, no indication for invasive testing at this time. Cardiology to continue to follow. Plan discussed with: Patient, Spouse My Orders Orders - GOYO CALDWELL Procedure Category Date Status Time Electrocardigram EKG 11/01/24 Logged 08:43 Date of Service: Nov 01, 2024 Billing Provider: JAH EVANGELISTA MD Common Visit Codes: CONSULT ONLY Consultation Codes: [id number] CONSULT <45MIN GOYO CALDWELL Nov 01, 2024 18:53
[2024-11-01] MEDS: APIXABAN 2.5 MG TAB PO SCH (22:07)
--- NOTE | 2024-11-01 23:17 | DVHPN2 ---
Progress Note - Dictate Date Seen: Nov 01, 2024 Medical Necessity Reason Pt with a Central, PICC or Fol: No Subjective Patient seen and examined at bedside. Remains on supplemental oxygen Overnight events reviewed. vital signs Vital Sign Date Time Temp Pulse Resp B/P (MAP) Pulse Ox O2 Delivery O2 Flow Rate FiO2 11/01/24 21:00 98.4 60 17 108/61 (77) 97 98.4 11/01/24 20:12 Nasal Cannula 2.0 11/01/24 20:12 28 Total Intake and Output 10/31/24 10/31/24 11/01/24 15:00 23:00 07:00 Intake Total 550 ml 240 ml Output Total 700 ml Balance 550 ml -460 ml medications Current Medications Medications Dose Ordered Sig/Gama Route Start Time Stop Time Status Last Admin Dose Admin Ipratropium [place] 0.5 mg Q6HWA NEB 10/26/24 12:00 11/01/24 20:12 0.5 MG Methylprednisolone Sodium Succinate 40 mg BID IV 10/26/24 10:00 11/01/24 22:07 40 MG Cefepime HCl 50 ml @ 12.5 mls/hr Q8HR IV 10/26/24 14:00 11/01/24 22:07 12.5 MLS/HR Levothyroxine Sodium 25 mcg QAM PO 10/27/24 07:00 11/01/24 06:39 25 MCG Levothyroxine Sodium 50 mcg QAM PO 10/27/24 07:00 11/01/24 06:39 50 MCG Acetaminophen/ Hydrocodone Bitart 1 tab Q4HP PRN PO 10/26/24 13:45 11/01/24 18:06 1 TAB Ondansetron HCl 4 mg Q4HP PRN IV 10/26/24 13:45 Docusate Sodium 100 mg BIDPRN PRN PO 10/26/24 13:45 Acetaminophen 650 mg Q6HP PRN PO 10/26/24 13:45 10/30/24 22:43 650 MG Morphine Sulfate 2 mg Q4HPRN PRN IV 10/26/24 13:45 10/26/24 22:57 2 MG Nitroglycerin 0.4 mg Q5MINP PRN SL 10/26/24 13:45 Morphine Sulfate 2 mg Q30M PRN IV 10/26/24 13:45 Azithromycin 250 ml @ 125 mls/hr DAILY IV 10/26/24 13:45 Hold Albuterol 2.5 mg Q6HWA NEB 10/27/24 12:00 11/01/24 20:12 2.5 MG Aspirin 81 mg DAILY PO 11/01/24 10:00 11/01/24 09:35 81 MG Sodium Chloride 1,000 ml @ 75 mls/hr [id number] IV 10/31/24 09:30 11/01/24 13:43 75 MLS/HR Metoprolol Tartrate 12.5 mg DAILY PO 11/01/24 10:00 Hold Atorvastatin Calcium 40 mg HS PO 10/31/24 22:00 11/01/24 22:07 40 MG Magnesium Oxide 400 mg BID PO 10/31/24 22:00 11/01/24 22:07 400 MG Apixaban 2.5 mg BID PO 11/01/24 22:00 11/01/24 22:07 2.5 MG Amlodipine Besylate 5 mg DAILY PO 11/02/24 10:00 objective Gen.: Patient lying in bed in no apparent distress. On supplemental oxygen. Head: Normocephalic, atraumatic. Eyes: EOMI/PERRLA. Ears: Normal hearing. Normal anatomy. Neck/trachea: Trachea midline, supple. Nose: Normal external anatomy. Mouth: Moist mucous membranes. Chest: Decreased air entry bilaterally. No wheezing or rhonchi. Cardiovascular: Positive S1, positive S2. Regular rate and rhythm. Abdomen: Positive bowel sounds in all 4 quadrants. Soft, non-tender, non- distended. : Deferred. Rectal: Deferred. Skin: Warm, dry. Intact. Extremities: 2+ radial pulses bilaterally. No lower extremity edema. Neuro: Awake, alert, oriented x3. No gross motor or sensory deficits. Cranial nerves II through XII intact. Gait not assessed. laboratory and microbiology Laboratory Tests 11/01/24 04:21 10/30/24 15:10 Test 11/01/24 04:21 Range/Units Serum Glucose 206 H 74-106 mg/dL Assessment/Plan Impression: Acute hypoxic respiratory failure 2/2 pneumonia Pneumonia, likely gram negative vs.gram positive Sinus bradycardia Atelectasis Events: Remains on supplemental oxygen, 2 LPM NC Taper O2 as tolerated Troponin trending up Cardiology recommendations appreciated Upgraded to tele. Continue bronchodilators Complete antibiotics Incentive spirometry Labs and imaging reviewed. Rest of plan as noted below. Plan: Supplemental oxygen Titrate to keep O2 sats above 92%. CT chest reviewed; notable for RML/RLL opacities and atelectasis. Echocardiogram reviewed; notable for EF of 55%. No valvular abnormalities. Left atrial enlargement. Cardiology recommendations appreciated for sinus bradycardia. Follow troponins CVRB of 65 - 1, low risk Antibiotics Due to QTc prolongation, no further azithromycin indicated. Incentive spirometry Monitor renal function. Monitor electrolytes. Supplement as necessary. Monitor ins and outs. DVT prophylaxis. Prognosis: Poor given patient's multiple co-morbidities. Rest of plan per hospitalist and other consultants. Thank you Dr. Tracy, for allowing me to participate in this patient's care. Further recommendations will depend on the patient's clinical course. Please do not hesitate to contact me if you have any questions or concerns. This medical document was created using an electronic medical record system with [employer] dictation system. Although these documentations are being carefully reviewed, there may still be some phonetic and typographical changes. The errors are purely typographical, due to imperfection on the software program, and do not reflect any compromise in the patient's medical care. Dietary Evaluation Review Recommendations by RD: Dietary education by RD Comments: 1) Change 2g Na diet to 60g CCHO cardiac diet 2) Advise patient to limit intake of added sugar included desserts, pastries, candy, and sugar-sweetened beverages 3) Encourage optimal PO intake 4) Follow-up with cardiology and pulmonology 5) Continue to monitor I&O, labs, and skin integrity Expected Outcomes/Goals: 1) appetite and labs to improve 2) f/u in 3-5 days Plan discussed with: Patient, Other (CHRIS Gosnalez) DONAVON WEISS MD Nov 01, 2024 23:17
--- NOTE | 2024-11-01 23:24 | DVHPN2 ---
Consult Progress Note Date Seen: Nov 01, 2024 Subjective Other Systems: Patient was seen and evaluated in follow up. Patient currently in sinus rhythm. Patient denies chest pain or palpitations, dizziness or shortness of breath. GLUC 206, CA 8.3, AST 51, ALT 86, TROP 153. Telemetry reviewed. Objective vital signs Vital Sign Date Time Temp Pulse Resp B/P (MAP) Pulse Ox O2 Delivery O2 Flow Rate FiO2 11/01/24 18:46 97 18 134/54 (80) 47 11/01/24 17:00 98.1 98.1 11/01/24 09:31 2.0 28 11/01/24 08:00 Room Air* Total Intake and Output 10/31/24 10/31/24 11/01/24 15:00 23:00 07:00 Intake Total 550 ml 240 ml Output Total 700 ml Balance 550 ml -460 ml medications Current Medications Medications Dose Ordered Sig/Gama Route Start Time Stop Time Status Last Admin Dose Admin Ipratropium [place] 0.5 mg Q6HWA NEB 10/26/24 12:00 11/01/24 11:32 0.5 MG Methylprednisolone Sodium Succinate 40 mg BID IV 10/26/24 10:00 11/01/24 09:34 40 MG Cefepime HCl 50 ml @ 12.5 mls/hr Q8HR IV 10/26/24 14:00 11/01/24 13:43 12.5 MLS/HR Levothyroxine Sodium 25 mcg QAM PO 10/27/24 07:00 11/01/24 06:39 25 MCG Levothyroxine Sodium 50 mcg QAM PO 10/27/24 07:00 11/01/24 06:39 50 MCG Acetaminophen/ Hydrocodone Bitart 1 tab Q4HP PRN PO 10/26/24 13:45 11/01/24 18:06 1 TAB Ondansetron HCl 4 mg Q4HP PRN IV 10/26/24 13:45 Docusate Sodium 100 mg BIDPRN PRN PO 10/26/24 13:45 Acetaminophen 650 mg Q6HP PRN PO 10/26/24 13:45 10/30/24 22:43 650 MG Morphine Sulfate 2 mg Q4HPRN PRN IV 10/26/24 13:45 10/26/24 22:57 2 MG Nitroglycerin 0.4 mg Q5MINP PRN SL 10/26/24 13:45 Morphine Sulfate 2 mg Q30M PRN IV 10/26/24 13:45 Azithromycin 250 ml @ 125 mls/hr DAILY IV 10/26/24 13:45 Hold Albuterol 2.5 mg Q6HWA NEB 10/27/24 12:00 11/01/24 11:32 2.5 MG Aspirin 81 mg DAILY PO 11/01/24 10:00 11/01/24 09:35 81 MG Sodium Chloride 1,000 ml @ 75 mls/hr [id number] IV 10/31/24 09:30 11/01/24 13:43 75 MLS/HR Metoprolol Tartrate 12.5 mg DAILY PO 11/01/24 10:00 Hold Atorvastatin Calcium 40 mg HS PO 10/31/24 22:00 10/31/24 21:44 40 MG Magnesium Oxide 400 mg BID PO 10/31/24 22:00 11/01/24 09:35 400 MG Apixaban 2.5 mg BID PO 11/01/24 22:00 Amlodipine Besylate 5 mg DAILY PO 11/02/24 10:00 Examination: GENERAL:Normal, LUNGS:Normal, CVS:Normal, ABDOMEN:Normal laboratory and microbiology Laboratory Tests 11/01/24 04:21 10/30/24 15:10 Test 11/01/24 04:21 Range/Units Serum Glucose 206 H 74-106 mg/dL Problem List/Assessment/Plan Problem List/Assessment/Plan Assessment/Plan Sinus bradycardia. Ruled out structural heart disease. Hypertension. Pneumonia. Thyroid disease. Acute AFib with RVR, now in sinus rhythm. Hypomagnesemia. NSTEMI, likely type 2 due to above. Continued all current supportive medical care. Patient has been seen by Concepcion Tobar NP on my behalf, her and I discussed the plan with the patient. The patient was initially admitted for sinus bradycardia and date of develop arterial fibrillation with RVR, which successfully converted to normal sinus rhythm after IV metoprolol 2.5mg and fluids. He remains asymptomatic--denying chest pain, dyspnea, dizziness, or palpitations. Troponin has increased from 20-60ng/L, but serial ECG shows no dynamic ischemic changes, and the patient has no clinical features suggestive of acute coronary syndrome. This mild troponin elevation is likely due to demand ischemia or rate-related myocardial strained during the episodes of AFib with RVR. His CHADS-VASc score is 3, and HAS BLED- score is 2, supporting the decision to initiate coagulation. A low dose of metoprolol 12.5 mg daily was started cautiously for rate control given prior sinus bradycardia. The patient was noted to be hypomagnesemic, and has been started on magnesium oxide 400 mg b.i.d.. Recommending continuing telemetry, trending troponins, monitoring vitals and rhythm closely. If troponins continue to rise or if symptoms develop, consider further ischemic evaluation. Otherwise, no indication for invasive testing at this time. Cardiology to continue to follow. Additional plan as per the hospital course. Plan discussed with: Patient, Spouse Dietary Evaluation Review Recommendations by RD: Dietary education by RD Comments: 1) Change 2g Na diet to 60g CCHO cardiac diet 2) Advise patient to limit intake of added sugar included desserts, pastries, candy, and sugar-sweetened beverages 3) Encourage optimal PO intake 4) Follow-up with cardiology and pulmonology 5) Continue to monitor I&O, labs, and skin integrity Expected Outcomes/Goals: 1) appetite and labs to improve 2) f/u in 3-5 days Date of Service: Nov 01, 2024 Billing Provider: JAH EVANGELISTA MD Cardiology Common Codes: 06203-YOBVEVO INP/OBS CARE (High) Cardiology Consultation Codes: 02662-UMMPENKGP CONSULT <45MIN JAH EVANGELISTA MD Nov 01, 2024 19:18
[2024-11-02] VITALS (10 sets, daily range): BP systolic 103–139; BP diastolic 63–75; PULSE 44–159; RESP 14–18; TEMP 36.3; O2SAT 95–100
--- NOTE | 2024-11-02 07:52 | ECG ---
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
--- NOTE | 2024-11-02 07:53 | ECG ---
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
[2024-11-02] MEDS ORDERED: APIX2.5T PO (14:30)
[2024-11-02] MEDS ORDERED: MET25T PO (14:30)
[2024-11-02] MEDS ORDERED: ATOR20TA50 PO (14:30)
[2024-11-02] MEDS ORDERED: AUG875T PO (14:30)
--- NOTE | 2024-11-02 22:53 | DVHPN2 ---
Progress Note - Dictate Date Seen: Nov 02, 2024 Medical Necessity Reason Pt with a Central, PICC or Fol: No Subjective Patient was seen and evaluated in follow up. Overnight, the patient had an episode of bradycardia in the high 30's on the cardiac cath technician. Patient states that it is normal for him to have a low HR. Patient denies any cardiac symptoms. Patient Telemetry reviewed. vital signs Vital Sign Date Time Temp Pulse Resp B/P (MAP) Pulse Ox O2 Delivery O2 Flow Rate FiO2 11/02/24 16:03 36.3 159 11/02/24 13:00 16 103/63 (76) 98 11/02/24 08:00 Nasal Cannula* 2 28 Total Intake and Output 11/01/24 11/01/24 11/02/24 14:59 22:59 06:59 Intake Total 50 ml 980 ml 1850 ml Output Total 940 ml Balance 50 ml 980 ml 910 ml medications Current Medications Medications Dose Ordered Sig/Gama Route Start Time Stop Time Status Last Admin Dose Admin Ipratropium [place] 0.5 mg Q6HWA NEB 10/26/24 12:00 11/02/24 06:06 0.5 MG Methylprednisolone Sodium Succinate 40 mg BID IV 10/26/24 10:00 11/02/24 10:31 40 MG Cefepime HCl 50 ml @ 12.5 mls/hr Q8HR IV 10/26/24 14:00 11/02/24 13:55 12.5 MLS/HR Levothyroxine Sodium 25 mcg QAM PO 10/27/24 07:00 11/02/24 06:16 25 MCG Levothyroxine Sodium 50 mcg QAM PO 10/27/24 07:00 11/02/24 06:17 50 MCG Acetaminophen/ Hydrocodone Bitart 1 tab Q4HP PRN PO 10/26/24 13:45 11/01/24 18:06 1 TAB Ondansetron HCl 4 mg Q4HP PRN IV 10/26/24 13:45 Docusate Sodium 100 mg BIDPRN PRN PO 10/26/24 13:45 Acetaminophen 650 mg Q6HP PRN PO 10/26/24 13:45 10/30/24 22:43 650 MG Morphine Sulfate 2 mg Q4HPRN PRN IV 10/26/24 13:45 10/26/24 22:57 2 MG Nitroglycerin 0.4 mg Q5MINP PRN SL 10/26/24 13:45 Morphine Sulfate 2 mg Q30M PRN IV 10/26/24 13:45 Azithromycin 250 ml @ 125 mls/hr DAILY IV 10/26/24 13:45 Hold Albuterol 2.5 mg Q6HWA NEB 10/27/24 12:00 11/02/24 06:06 2.5 MG Aspirin 81 mg DAILY PO 11/01/24 10:00 11/02/24 10:32 81 MG Sodium Chloride 1,000 ml @ 75 mls/hr [id number] IV 10/31/24 09:30 11/02/24 01:41 75 MLS/HR Metoprolol Tartrate 12.5 mg DAILY PO 11/01/24 10:00 Hold Atorvastatin Calcium 40 mg HS PO 10/31/24 22:00 11/01/24 22:07 40 MG Magnesium Oxide 400 mg BID PO 10/31/24 22:00 11/02/24 10:32 400 MG Apixaban 2.5 mg BID PO 11/01/24 22:00 11/02/24 10:32 2.5 MG Amlodipine Besylate 5 mg DAILY PO 11/02/24 10:00 11/02/24 10:33 5 MG objective GENERAL: Alert and oriented x 3. No acute distress. EYES: PERRL, EOMI. Anicteric. HENT: Moist mucous membranes. LUNGS: Clear to auscultation bilaterally. CARDIOVASCULAR: Regular rate and rhythm. ABDOMEN: Soft, nontender and nondistended. EXTREMITIES: No edema. NEUROLOGIC: No focal neurological deficits. SKIN: Warm, dry. laboratory and microbiology Laboratory Tests 11/01/24 04:21 10/30/24 15:10 Test 11/01/24 04:21 Range/Units Serum Glucose 206 H 74-106 mg/dL Problem List Sinus bradycardia. Ruled out structural heart disease. Hypertension. Pneumonia. Thyroid disease. Acute AFib with RVR, now in sinus rhythm. Hypomagnesemia. NSTEMI, likely type 2 due to above. Assessment/Plan Continued all current supportive medical care. Amlodipine. Eliquis. Aspirin. IV antibiotics as ordered. Morphine for pain management. Additional plan as per the hospital course. Dietary Evaluation Review Recommendations by RD: Dietary education by RD Comments: 1) Change 2g Na diet to 60g CCHO cardiac diet 2) Advise patient to limit intake of added sugar included desserts, pastries, candy, and sugar-sweetened beverages 3) Encourage optimal PO intake 4) Follow-up with cardiology and pulmonology 5) Continue to monitor I&O, labs, and skin integrity Expected Outcomes/Goals: 1) appetite and labs to improve 2) f/u in 3-5 days Plan discussed with: Patient JAH EVANGELISTA MD Nov 02, 2024 17:00
--- NOTE | 2024-11-02 23:51 | DVHPN2 ---
Progress Note - Dictate Date Seen: Nov 02, 2024 Medical Necessity Reason Pt with a Central, PICC or Fol: No Subjective Patient seen and examined at bedside. Remains on supplemental oxygen Overnight events reviewed. vital signs Vital Sign Date Time Temp Pulse Resp B/P (MAP) Pulse Ox O2 Delivery O2 Flow Rate FiO2 11/02/24 17:00 97.9 57 16 106/74 (85) 95 97.9 11/02/24 08:00 Nasal Cannula* 2 28 Total Intake and Output 11/01/24 11/01/24 11/02/24 15:00 23:00 07:00 Intake Total 50 ml 980 ml 1850 ml Output Total 940 ml Balance 50 ml 980 ml 910 ml objective Gen.: Patient lying in bed in no apparent distress. On supplemental oxygen. Head: Normocephalic, atraumatic. Eyes: EOMI/PERRLA. Ears: Normal hearing. Normal anatomy. Neck/trachea: Trachea midline, supple. Nose: Normal external anatomy. Mouth: Moist mucous membranes. Chest: Decreased air entry bilaterally. No wheezing or rhonchi. Cardiovascular: Positive S1, positive S2. Regular rate and rhythm. Abdomen: Positive bowel sounds in all 4 quadrants. Soft, non-tender, non- distended. : Deferred. Rectal: Deferred. Skin: Warm, dry. Intact. Extremities: 2+ radial pulses bilaterally. No lower extremity edema. Neuro: Awake, alert, oriented x3. No gross motor or sensory deficits. Cranial nerves II through XII intact. Gait not assessed. laboratory and microbiology Laboratory Tests 11/01/24 04:21 10/30/24 15:10 Test 11/01/24 04:21 Range/Units Serum Glucose 206 H 74-106 mg/dL Assessment/Plan Impression: Acute hypoxic respiratory failure 2/2 pneumonia Pneumonia, likely gram negative vs.gram positive Sinus bradycardia Atelectasis Events: Remains on supplemental oxygen, 2 LPM NC Taper O2 as tolerated Arranged for home oxygen. Cardiology recommendations appreciated Continue bronchodilators Complete antibiotics Incentive spirometry Patient is stable for discharge from the pulmonary standpoint. Follow up in Pulmonary Clinic in 2 weeks Labs and imaging reviewed. Rest of plan as noted below. Plan: Supplemental oxygen Titrate to keep O2 sats above 92%. CT chest reviewed; notable for RML/RLL opacities and atelectasis. Echocardiogram reviewed; notable for EF of 55%. No valvular abnormalities. Left atrial enlargement. Cardiology recommendations appreciated for sinus bradycardia. Follow troponins CVRB of 65 - 1, low risk Antibiotics Due to QTc prolongation, no further azithromycin indicated. Incentive spirometry Monitor renal function. Monitor electrolytes. Supplement as necessary. Monitor ins and outs. DVT prophylaxis. Prognosis: Poor given patient's multiple co-morbidities. Rest of plan per hospitalist and other consultants. Thank you Dr. Tracy, for allowing me to participate in this patient's care. Further recommendations will depend on the patient's clinical course. Please do not hesitate to contact me if you have any questions or concerns. This medical document was created using an electronic medical record system with [employer] dictation system. Although these documentations are being carefully reviewed, there may still be some phonetic and typographical changes. The errors are purely typographical, due to imperfection on the software program, and do not reflect any compromise in the patient's medical care. Dietary Evaluation Review Recommendations by RD: Dietary education by RD Comments: 1) Change 2g Na diet to 60g CCHO cardiac diet 2) Advise patient to limit intake of added sugar included desserts, pastries, candy, and sugar-sweetened beverages 3) Encourage optimal PO intake 4) Follow-up with cardiology and pulmonology 5) Continue to monitor I&O, labs, and skin integrity Expected Outcomes/Goals: 1) appetite and labs to improve 2) f/u in 3-5 days Plan discussed with: Patient, Other (CHRIS Gonsalez) DONAVON WEISS MD Nov 02, 2024 23:51
== END 2024-11-02 17:30 | disposition home health service (06) | DRG 177 ==
LOC: ER 05:03 → OVERFLOW 13:39 → WEST WING 20:28 → TELE-WESTW 10-28 23:06 → TELE-EAST 10-30 20:00
PROVIDERS: ADMIT Internal Medicine; ATTEND Internal Medicine
DX: J15.69 Pneumonia due to other Gram-negative bacteria (principal); I21.A1 Myocardial infarction type 2; J96.01 Acute respiratory failure with hypoxia; J98.11 Atelectasis; J15.9 Unspecified bacterial pneumonia; E03.9 Hypothyroidism, unspecified; I10 Essential (primary) hypertension; E83.42 Hypomagnesemia; I48.91 Unspecified atrial fibrillation; Z20.822 Contact with and (suspected) exposure to COVID-19; R00.1 Bradycardia, unspecified; Z83.3 Family history of diabetes mellitus
CPT/HCPCS: 36415; 71045; 71260; 74177; 76705; 80048; 80053; 80061; 81001; 83036; 83605; 83690; 83735; 84443; 84484; 85025; 85610; 85730; 87040; 87426; 87804; 93005; 93306; 94640; 96365; 96375; 97110; 97116; 97163; 97530; G0378; J2405; J3490